=== PATIENT | male | born 1995 | race Caucasian/White ===

== ENCOUNTER 2020-06-15 06:05 | Emergency (ER) | payer MEDICAID, SELFPAY ==
--- NOTE | ~2020-06-15 | CT_ITS ---
EXAMINATION: CT ABDOMEN AND PELVIS WITHOUT CONTRAST CLINICAL INFORMATION: Left flank pain. COMPARISON: No priors. TECHNIQUE: Multidetector volumetric imaging was performed from the superior aspect of the liver through the pubic symphysis. Sagittal and coronal reformatted images were obtained on the technologist's workstation. This CT examination was performed using dose optimization techniques as appropriate, variously including the following: *Automated exposure control *Adjustment of mA and/or kV according to patient size (this includes techniques or standardized protocols for targeted exams where dose is matched to indication/reason for exam; i.e. extremities or head) *Use of iterative reconstruction technique DLP: 381 mGy-cm FINDINGS: LUNG BASES: The visualized lung bases are unremarkable. LIVER, GALLBLADDER, AND BILIARY TREE: The liver is normal in size, shape, and attenuation. No focal hepatic lesion or biliary ductal dilatation is present. The gallbladder is unremarkable with no evidence of radiopaque gallstones, gallbladder wall thickening, or obvious pericholecystic inflammatory changes. PANCREAS: Normal. SPLEEN: Normal. ADRENAL GLANDS: Normal. KIDNEYS AND URETERS: Punctate calculus in the inferior pole the left kidney (5:40) measures up to 2 mm. Punctate calculus in the inferior pole of the right kidney (5:45) measures up to 2 mm. No right or left ureteral calculi. No urinary bladder calculi. BLADDER: Normal. GASTROINTESTINAL TRACT: The small and large bowel are unremarkable. The appendix is unremarkable. PERITONEUM/RETROPERITONEUM AND MESENTERY: No free air or fluid. ABDOMINAL WALL: No significant hernia is appreciated. LYMPH NODES: Normal. VASCULAR: Unremarkable. PELVIC VISCERA: Prostate seminal vesicles are normal in caliber. OSSEOUS STRUCTURES: Normal. CT/CT abdomen pelvis wo con IMPRESSION: Bilateral nonobstructive punctate nephrolithiasis. No ureteral or urinary bladder calculi. No hydronephrosis or hydroureter.
[2020-06-15 06:19] VITALS: BP 122/69; PULSE 77; RESP 16; TEMP 36.8; O2SAT 98; BMI 22.8
[2020-06-15 07:07] VITALS: BP 102/56; PULSE 76; RESP 16; TEMP 36.5; O2SAT 96
--- NOTE | 2020-06-15 07:08 | ED_ITS ---
HPI - Back Pain/Injury General Chief Complaint: Back Pain/Injury Stated Complaint: Back pain Time Seen by Provider: 06/15/20 07:07 Source: patient Mode of arrival: ambulatory Limitations: no limitations History of Present Illness HPI Narrative: [age] year old male walked in for right flank pain, pain started 2 days ago, started as insidious onset, described the pain as dull aching pain localized to the right flank area with no radiation, pain is worsening with movement, nothing relieves the pain no other associated symptoms with this pain no nausea, no vomiting, no fever, no blood in the urine. Never had similar pain before. Patient was evaluated at [facility] yesterday patient was sent with muscle relaxant and NSAIDs with no relief. Patient declined any trauma for strenuous activity. Related Data Allergies Allergy/AdvReac Type Severity Reaction Status Date / Time No Known Allergies Allergy Unverified 12/14/19 16:20 Review of Systems Review of Systems: All other systems are reviewed and are negative Constitutional: Reports as per HPI and Reports no additional constitutional complaints Eyes: Reports as per HPI and Reports no additional eye complaints Reports system reviewed and no additional complaints, except as documented Cardiovascular: Reports as per HPI and Reports no additional cardiovascular complaints Respiratory: Reports as per HPI and Reports no additional respiratory complaints Gastrointestinal: Reports as per HPI and Reports no additional gastrointestinal complaints Genitourinary: Reports no additional female genitourinary complaints Musculoskeletal: Reports no additional musculoskeletal complaints Skin/Breast: Reports system reviewed and no additional complaints, except as docu Psychiatric: Reports no additional psychiatric complaints Endocrine: Reports no additional endocrine complaints Hematologic/Lymphatic: Reports no additional hematologic/lymphatic complaints Allergic/Immunologic: Reports no additional allergic/immunologic complaints Reports system reviewed and no additional complaints, except as documented and Reports Abnormal speech present [facility] Past Medical History Medical History No active medical problems Social History Social History Advance Directives: No Advance Directives Information Provided: No Physical Exam 2 Vital Signs: Vital Signs: Last Vital Signs Temp 97.7 F 06/15/20 07:07 Pulse 76 06/15/20 07:07 Resp 16 06/15/20 07:07 BP 102/56 L 06/15/20 07:07 Pulse Ox 96 06/15/20 07:07 Body Mass Index 22.8 Vital signs have been reviewed as appeared to be correct. Blood pressure normal. Heart rate normal. Respiration rate normal. Temperature normal. Oxygen saturation normal. Appearance: Alert. Oriented X3. No acute distress. Head: Normal external exam. Normocephalic. Atraumatic. No Mahan signs noted. No raccoon eyes noted Eyes: PERRLA. EOMI. Conjunctiva and sclera normal. Eyelids normal. ENT: TM's Normal. Pharynx normal. Uvula midline. Moist mucous membranes. No trismus noted. No drooling noted. No muffled voice noted. Neck: Normal inspection. Neck supple. FROM. No adenopathy. Thyroid Normal. No meningeal signs. No neck mass noted. CVS: Normal heart rate and rhythm. Heart sound normal. No murmurs noted. Pulses normal throughout. Respiratory: No respiratory distress. Painless inspiration. Breath sounds normal. No wheezes/rales/rhonchi noted. Chest nontender. No accessory muscle usage noted or decreased air movement noted. Abdomen: Soft and nontender. Bowel sounds normal in all 4 quadrants. No distention noted. No organomegaly noted. No visible injury noted. Back: Left CVA tenderness. Full range of motion noted. Skin: Skin warm and dry. Normal skin color. Normal skin turgor. No rashes/lesions/lacerations noted. Extremities: No lower extremity edema. Extremities exhibit normal range of motion. Extremities nontender. Neuro: Oriented X 3. No motor deficit. No sensory deficit. Reflexes normal. Course Course Course Narrative: 25-year-old male came in with left flank pain for the last 2 days, physical exam, labs, UA, and CT are consistent with muscular pain. Patient is already on muscle relaxant was advised to add ibuprofen if needed for pain and rest with avoiding strenuous activity. MDM - Back Pain/Injury Lab Data Attestation: I reviewed the patient's lab results. Result diagrams: 06/15/20 07:25 06/15/20 07:25 Labs: Lab Results 06/15/20 06/15/20 06/15/20 Range/Units 07:25 07:25 08:48 WBC 8.1 (4.8-10.8) X10*3/uL RBC 5.80 (4.60-5.80) X10*6/uL Hgb 16.7 (14.0-18.0) g/dl Hct 48.4 (42-52) % MCV 83.4 (80-98) fL MCH 28.8 (27.0-33.0) pg MCHC 34.5 (31.0-36.0) g/dl RDW 12.8 (11.0-16.0) % Plt Count 234 (160-400) X10*3/uL MPV 8.8 L (9.4-12.4) fL Immature Gran % (Auto) 0.2 (0.0-0.4) % Neut % (Auto) 56.3 (45-73) % Lymph % (Auto) 23.8 (20-40) % [place] % (Auto) 8.4 (2-11) % Eos % (Auto) 10.1 H (0-4) % Baso % (Auto) 1.2 (0-2) % Lymph # (Auto) 1.9 (1.2-4.9) X10*3/uL [place] # (Auto) 0.7 (0.1-1.2) X10*3/uL Eos # (Auto) 0.8 H (0.0-0.4) X10*3/uL Baso # (Auto) 0.1 (0.0-0.2) X10*3/uL Abs Immat Gran (auto) 0.02 (0.00-0.03) X10*3/uL Absolute Neuts (auto) 4.6 (2.0-8.3) X10*3/uL Absolute Nucleated RBC 0.000 (0.0-0.012) X10*3/uL Nucleated RBC % (auto) 0.0 (0.0-0.2) /100WBC Sodium 140 (135-145) mmol/L Potassium 4.8 (3.3-5.1) mmol/L Chloride 102 (96-108) mmol/L Carbon Dioxide 30 H (22-29) mmol/L Anion Gap 13 (12-20) BUN 14 (9-16) mg/dL Creatinine 1.04 (0.5-1.4) mg/dL Estim Creat Clear Calc 103.7 Estimated GFR > 60 Random Glucose 90 (60-115) mg/dL Calcium 9.3 (8.4-10.2) mg/dL Total Bilirubin 0.7 (0.0-1.0) mg/dL Direct Bilirubin 0.2 (0.0-0.5) mg/dL AST 19 (5-37) U/L ALT 13 (0-40) U/L Alkaline Phosphatase 73 (39-117) U/L Total Protein 7.5 (6.5-8.0) g/dL Albumin 4.5 (3.5-5.0) g/dL Lipase 29 (8-78) U/L Urine Color YELLOW Urine Appearance CLEAR Urine pH 6.0 (5.0-8.0) Ur Specific [place] 1.025 (1.005-1.025) Urine Protein NEG (NEG-TRACE) MG/DL Urine Glucose (UA) NEG (NEG) MG/DL Urine Ketones NEG (NEG) MG/DL Urine Blood NEG (NEG) Urine Nitrite NEG (NEG) Ur Leukocyte Esterase NEG (NEG) Imaging Data CT scan - abdomen: Radiologist's impression: Bilateral nonobstructive punctate nephrolithiasis. No ureteral or urinary bladder calculi. No hydronephrosis or hydroureter. Discharge Plan Discharge Clinical Impression: Muscle strain Patient Disposition: Home, Self-Care Instructions: Muscle Strain (ED) Referrals: Physician,None [Primary Care Provider] - 2 days
[2020-06-15 07:29] LABS: MANUAL DIFF FLAG NO
[2020-06-15] MEDS: Ketorolac Tromethamine 15 MG/ML VIAL IV (07:29)
[2020-06-15 07:31] LABS: Basophils Absolute Auto 0.1 X10*3/uL (0.0-0.2); Basophils Percent Auto 1.2 % (0-2); Eosinophils Absolute Auto 0.8 X10*3/uL (0.0-0.4); Eosinophils Percent Auto 10.1 % (0-4); Hematocrit 48.4 % (42-52); Hemoglobin 16.7 g/dl (14.0-18.0); Imm Gran Abs Auto 0.02 X10*3/uL (0.00-0.03); Imm Gran Pct Auto 0.2 % (0.0-0.4); Lymphocytes Absolute Auto 1.9 X10*3/uL (1.2-4.9); Lymphocytes Percent Auto 23.8 % (20-40); Mean Corpuscular HGB Conc 34.5 g/dl (31.0-36.0); Mean Corpuscular Hemoglobin 28.8 pg (27.0-33.0); Mean Corpuscular Volume 83.4 fL (80-98); Mean Platelet Volume 8.8 fL (9.4-12.4); Monocytes Absolute Auto 0.7 X10*3/uL (0.1-1.2); Monocytes Percent Auto 8.4 % (2-11); Neutrophils Absolute Auto 4.6 X10*3/uL (2.0-8.3); Neutrophils Percent Auto 56.3 % (45-73); Platelet Count 234 X10*3/uL (160-400); Red Cell Distribution Width 12.8 % (11.0-16.0); White Blood Count 8.1 X10*3/uL (4.8-10.8)
[2020-06-15 08:26] LABS: Alanine Aminotransferase 13 U/L (0-40); Albumin Level 4.5 g/dL (3.5-5.0); Alkaline Phosphatase 73 U/L (39-117); Anion Gap 13 (12-20); Aspartate Amino Transferase 19 U/L (5-37); Bilirubin Direct 0.2 mg/dL (0.0-0.5); Bilirubin Total 0.7 mg/dL (0.0-1.0); Blood Urea Nitrogen 14 mg/dL (9-16); Calcium 9.3 mg/dL (8.4-10.2); Carbon Dioxide 30 mmol/L (22-29); Chloride 102 mmol/L (96-108); Creatinine Clr Calc Pharmacy 103.7; Estimated Glomerular Filt Rate > 60; Glucose Random 90 mg/dL (60-115); Lipase 29 U/L (8-78); Potassium 4.8 mmol/L (3.3-5.1); Sodium 140 mmol/L (135-145); Total Protein 7.5 g/dL (6.5-8.0)
[2020-06-15 08:59] LABS: Glucose Urine UA NEG (NEG); Leukocyte Esterase Urine NEG (NEG); Nitrite Urine NEG (NEG); Specific Gravity - Urine 1.025 (1.005-1.025); Urine Blood NEG (NEG); Urine Ketones NEG (NEG); Urine Protein NEG (NEG-TRACE)
[2020-06-15 09:02] LABS: Appearance Urine CLEAR; Color Urine YELLOW
[2020-06-15 09:07] VITALS: BP 115/68; PULSE 54; RESP 16; TEMP 36.5; O2SAT 100
== END 2020-06-15 09:50 | disposition home or self-care (01) ==
PROVIDERS: Emergency Provider Emergency Medicine
DX: S39.012A Strain of muscle, fascia and tendon of lower back, initial encounter (principal); X58.XXXA Exposure to other specified factors, initial encounter; N20.0 Calculus of kidney; Y93.9 Activity, unspecified; Y92.9 Unspecified place or not applicable; Y99.9 Unspecified external cause status
CPT/HCPCS: 36415; 74176; 80048; 80076; 81003; 83690; 85025; 96374; 99284; J1885

== ENCOUNTER 2021-04-07 15:00 | Outpatient (RCR) | payer MEDICAID, SELFPAY | END 2021-04-29 14:22 | disposition home or self-care (01) | LOC: HO.PT 15:00 | PROVIDERS: PCP Family Medicine; Visit Provider Family Medicine | DX: M54.9 Dorsalgia, unspecified (principal) | CPT/HCPCS: 97110; 97161 ==

== ENCOUNTER 2021-05-29 18:49 | Emergency (ER) | payer MEDICAID, SELFPAY ==
[2021-05-29 19:19] VITALS: BP 113/71; PULSE 79; RESP 18; TEMP 36.5; O2SAT 98; BMI 23.6
--- NOTE | 2021-05-29 21:56 | ED_ITS ---
HPI - General Adult General Chief complaint: General Medical Stated complaint: big bump on right leg/ buttocks Time Seen by Provider: 05/29/21 20:27 Source: patient Mode of arrival: ambulatory Limitations: no limitations History of Present Illness HPI narrative: Patient presents to ED for painful lump on right buttock for the past 4 days. Patient denies any recent trauma to the area, pus discharge, fever, chills, or any shaving/injection into area. Patient states no medical history Related Data Previous Rx's Medication Instructions Recorded cephalexin 500 mg capsule 500 mg PO QID 7 Days #28 cap 05/29/21 doxycycline hyclate 100 mg capsule 100 mg PO BID 7 Days #14 cap 05/29/21 naproxen 500 mg tablet 500 mg PO BID PRN 10 Days #20 tab 05/29/21 oxycodone-acetaminophen 5 mg-325 1 tab PO TID PRN 3 Days #9 tab 05/29/21 mg tablet (Percocet) Allergies Allergy/AdvReac Type Severity Reaction Status Date / Time No Known Allergies Allergy Verified 05/29/21 19:18 Review of Systems Review of Systems: Right buttock pain. Lump Yes all other systems are reviewed and are negative PMFSH Past Medical History Medical History (Updated 05/30/21 @ 00:02 by Nancy Jacob) Seasonal allergies Social History Social History Advance Directives: No Advance Directives Information Provided: No Physical Exam ED Vital Signs: Vital Signs - 24 hr 05/29/21 19:19 Temperature 97.7 F Pulse Rate 79 Respiratory Rate 18 Blood Pressure 113/71 Pulse Oximetry 98 BMI result Body Mass Index 23.6 Const General: cooperative, healthy appearing, comfortable, no acute distress, well developed, alert, awake and Physically active Orientation/consciousness: patient oriented x3 HENMT Head: Yes normal to inspection, Yes No palpable skull fracture present, Yes normocephalic, Yes atraumatic and No abrasion Eyes General: appearance normal, both eyes and all related structures Neck Neck: Yes normal visual inspection, Yes full ROM, Yes no lymphadenopathy, Yes no meningeal signs, Yes trachea midline, Yes supple, No anterior neck swelling and No tender Chest Chest palpation & inspection: normal inspection of the chest and normal pa lpation of entire chest wall Resp Effort & Inspection: normal respiratory effort and able to speak in complete sentences Auscultation: clear to auscultation bilaterally Cardio Jugular venous distension: no JVD Heart sounds: S1 normal heart sound present and S2 normal heart sound present GI Inspection: Yes normal to inspection and No abdominal wall ecchymosis Palpation (GI): Soft to palpation, not firm, nontender, no guarding and not rigid General: No CVA tenderness and Yes no CVA tenderness Back/Spine/Pelvis Back: no CVA tenderness, No CVA tenderness and No back tenderness Skin Full body images: 1. Positive for erythema and tenderness on palpation. Hard and negative for any fluctuant. Negative for any pus discharge or foul odor. Neuro General: patient oriented x3, gait normal, no meningeal signs and CN's II-XI intact bilaterally Cranial nerves: Yes CN's II-XII intact bilaterally Extrem General: Yes normal to inspection and Yes full ROM Psych Appearance: grossly normal, well kempt and not disheveled Course Course Course Narrative: Early cellulitis/abscess. Reevaluation(s) Reevaluation #1: Bedside ultrasound of buttocks shows more cobblestone skin changes and not much pus collection. Not yet ready for drainage. Patient will be discharged with antibiotics. Patient educated on warm compress Time: 21:59 Medical Decision Making MDM Narrative Medical decision making narrative: Cellulitis/early abscess Discharge Plan Discharge Clinical Impression: Cellulitis and abscess of buttock Patient Disposition: Home, Self-Care Instructions: Cellulitis (ED), Abscess (ED) Additional Instructions: Presently there is no indication for incision and drainage. Recommend antibiotics and warm compresses 4 times a day for 15 minutes. There is increase in size, pain, opening with drainage, fever, chills, worsening redness, or any other concerning symptoms return to the ER immediately. Please follow-up with primary care provider Prescriptions: New cephalexin 500 mg capsule 500 mg PO QID 7 Days Qty: 28 0RF doxycycline hyclate 100 mg capsule 100 mg PO BID 7 Days Qty: 14 0RF naproxen 500 mg tablet 500 mg PO BID PRN (Reason: pain) 10 Days Qty: 20 0RF oxycodone-acetaminophen [Percocet] 5-325 mg tablet 1 tab PO TID PRN (Reason: pain) 3 Days Qty: 9 0RF Stand Alone Forms: Work/School Release Interventions: ED Discharge Assessment Last Done: 05/29/21 22:33 Discharge Date/Time: 05/29/21 22:34 Print Language: [place]
[2021-05-29] MEDS: oxyCODONE HCl Immed Release 5 MG TABLET PO (22:06)
== END 2021-05-29 22:34 | disposition home or self-care (01) ==
PROVIDERS: Emergency Provider Emergency Medicine Emergency Medical Services
DX: L03.317 Cellulitis of buttock (principal); L02.31 Cutaneous abscess of buttock
CPT/HCPCS: 99283; 99284

== ENCOUNTER 2022-05-24 10:26 | Emergency (ER) | payer MEDICAID, SELFPAY ==
--- NOTE | ~2022-05-24 | CT_ITS ---
EXAMINATION: CT ABDOMEN AND PELVIS WITHOUT CONTRAST CLINICAL INFORMATION: History of calculi. Left flank pain. COMPARISON: 06/15/2020 TECHNIQUE: Multidetector volumetric imaging was performed from the superior aspect of the liver through the pubic symphysis. Sagittal and coronal reformatted images were obtained on the technologist's workstation. This CT examination was performed using dose optimization techniques as appropriate, variously including the following: *Automated exposure control *Adjustment of mA and/or kV according to patient size (this includes techniques or standardized protocols for targeted exams where dose is matched to indication/reason for exam; i.e. extremities or head) *Use of iterative reconstruction technique DLP: 336 mGy-cm FINDINGS: LUNG BASES: Normal. No pulmonary consolidation or pleural effusion. LIVER: The liver has normal size, shape, and attenuation. No evidence of liver mass. GALLBLADDER AND BILIARY TREE: Gallbladder is without radiopaque stones, wall thickening or pericholecystic fluid. No dilated bile ducts. PANCREAS: Normal. No edema, pancreatic ductal dilatation or mass. SPLEEN: Normal. ADRENAL GLANDS: Normal. KIDNEYS AND URETERS: The kidneys have normal size and cortical thickness. No perinephric edema or fluid collection. A punctate calyceal stone is present in the anterior left lower pole (image 222, series 4). Otherwise, no evidence of urolithiasis or hydroureteronephrosis. BLADDER: Normal. No calculi or wall thickening. Two phleboliths are observed in the left lower pelvis. BOWEL AND PERITONEUM: Stomach is unremarkable. No dilated loops of bowel. No focal bowel wall thickening or mesenteric fat stranding. No evidence of an obstructive or inflammatory process along the gastrointestinal tract, although evaluation is partially limited for noncontrast examination. No free fluid or pneumoperitoneum. ABDOMINAL WALL: Unremarkable. VASCULATURE: Unremarkable. LYMPH NODES: No pathologic sized lymph nodes in the abdomen or pelvis. No inguinal lymphadenopathy. PELVIC VISCERA: Normal. MUSCULOSKELETAL: The visualized lower thoracic and lumbar vertebra have normal height and alignment. Mild lumbar spondylosis. No suspicious bone lesions. CT/CT abdomen pelvis wo IV con IMPRESSION: * No acute imaging abnormalities in the abdomen or pelvis. * A punctate stone is present in the lower pole of the left kidney. Otherwise, no evidence of nephrolithiasis, hydronephrosis or perinephric edema.
[2022-05-24 10:29] VITALS: BP 105/88; PULSE 66; RESP 16; TEMP 36.8; O2SAT 99; BMI 22.8
--- NOTE | 2022-05-24 10:51 | ED_ITS ---
HPI - Back Pain/Injury General Chief Complaint: Back Pain/Injury Stated Complaint: Back pain Time Seen by Provider: 05/24/22 10:34 Source: patient Mode of arrival: ambulatory Limitations: no limitations History of Present Illness HPI Narrative: Patient is a 27-year-old male presents emergency department for evaluation of left back pain. He states that he woke this morning with severe pain. Denies any precipitating injury or events last night that would have provoked these symptoms. He does state that he has had similar pain in the past, but he is unable to tell me whether there is ever any diagnosis or wet has been helpful status pain past. He took ibuprofen 2 hours ago without any improvement. Denies fevers, chills, burning with micturition, urinary frequency/urgency/hesitancy, bladder or bowel dysfunction, numbness or tingling of the perineum or bilateral legs. Denies any recent surgical procedures, any known immune compromising conditions, personal history of cancer, or IV drug usage. MD elicited complaint: back pain Related Data Previous Rx's Medication Instructions Recorded cephalexin 500 mg capsule 500 mg PO QID 7 days #28 caps 05/29/21 doxycycline hyclate 100 mg capsule 100 mg PO BID 7 days #14 caps 05/29/21 naproxen 500 mg tablet 500 mg PO BID PRN pain 10 days #20 05/29/21 tabs oxycodone-acetaminophen 5 mg-325 1 tab PO TID PRN pain 3 days #9 05/29/21 mg tablet (Percocet) tabs Allergies Allergy/AdvReac Type Severity Reaction Status Date / Time No Known Allergies Allergy Verified 05/29/21 19:18 Review of Systems Review of Systems: Constitutional: No weight loss, fever, chills, weakness or fatigue. HEENT: No visual loss, blurred vision, double vision. No hearing loss, sneezing, congestion, runny nose or sore throat. Skin: No rash or itching. Cardiovascular: No chest pain, chest pressure or chest discomfort. No palpitations or pedal edema. Respiratory: No shortness of breath, cough or sputum production. Gastrointestinal: No anorexia, nausea, vomiting or diarrhea. No abdominal pain or blood in stool. Genitourinary: No burning micturition. No urinary frequency or incontinence. Neurologic: No headache, dizziness, syncope, unilateral weakness, ataxia, numbness or tingling in the extremities. No change in bowel or bladder control. Musculoskeletal: + Back pain as noted in HPI. No joint pain or stiffness. Hematologic: No bleeding or bruising. Lymphatics: No enlarged lymph nodes. Psychiatric:No depression or anxiety. Endocrine: No reports of sweating. No cold or heat intolerance. No polyuria or polydipsia. Yes all other systems are reviewed and are negative PMFSH Past Medical History Attestation statement: The following information was validated with the patient. Source: old records reviewed Medical History Seasonal allergies Social History Social History Advance Directives: No Advance Directives Information Provided: Yes Physical Exam Vital Signs: Vital Signs: Last Vital Signs Temp 97.9 F 05/24/22 12:00 Pulse 61 05/24/22 12:00 Resp 18 05/24/22 12:00 BP 140/71 H 05/24/22 12:00 Pulse Ox 99 05/24/22 12:00 O2 Del Method 05/24/22 12:00 BMI result Body Mass Index 22.8 Appearance: Alert.?Oriented to person, place and time. No acute distress.?No rmal affect. Eyes: Pupils equal, round and reactive to light.? ENT: Pharynx normal.?? Neck: Normal inspection.? Neck supple.?? CVS: Heart sounds normal. Normal heart rate and rhythm.? Pulses normal; bilateral radial pulses 2+, bilateral posterior tibial/dorsalis pedis pulses 2+.? Respiratory: No respiratory distress.? Lung sounds clear to auscultation bilaterally?? Abdomen: Soft and non-tender. Normoactive bowel sounds. No pulsatile mass.?? Skin: Skin warm and dry.? Normal skin color.? Normal skin turgor.?? Extremities: No lower extremity edema.? No calf ttp? Back: Left CVA tenderness No midline spinal tenderness, step-off's, or deformity. Full ROM intact in bilateral lower extremities. Straight leg test negative on right; Straight leg test negative on left. No rashes, lesions, areas of induration or fluctuance, or signs of infection noted. Neuro: Moves all extremities spontaneously. 5/5 strength in hip extension/flexion, abduction, adduction. Sensation to light touch intact bilaterally. Patellar and Achilles reflex 2+ bilaterally. No ataxia, gait normal and steady.. No focal neuro deficits. Course Reevaluation(s) Reevaluation #1: CBC is unremarkable no leukocytosis no anemia. CMP within normal limits, no abnormal renal function. Urinalysis without evidence of infection or microscopic hematuria. CT of the abdomen and pelvis reveals no acute abnormality, a punctate stone is present in the lower pole the left kidney, although I do not suspect this to be the etiology for his pain. At this time pain is most consistent with muscular nature. Discussed plan of care for discharge home, prescription for Lidoderm patch, NSAID, muscle relaxers and patient's pharmacy. Advised outpatient follow-up with primary care provider for persistent symptoms. Reviewed worrisome signs and symptoms of warrant re- evaluation in the emergency department. All questions answered. Stable for discharge. Time: 12:27 Medications Administered Discontinued Medications Generic Name Dose Route Start Last Admin Trade Name Freq PRN Reason Stop Dose Admin Sodium Chloride 1,000 mls @ 999 mls/hr 05/24/22 11:15 05/24/22 11:24 Ns IV 05/24/22 12:15 999 mls/hr .Q1H1M BENITO Administration Lidocaine 1 patch 05/24/22 12:06 05/24/22 12:17 Lidocaine 4 % Patch Adh..Patch TRANSDERMA 05/24/22 12:07 1 patch ONCE ONE Administration Protocol Morphine Sulfate 4 mg 05/24/22 11:01 05/24/22 11:20 Morphine Sulfate 4 Mg/Ml Cartridge IVPUSH 05/24/22 11:02 4 mg ONCE ONE Administration Protocol Medical Decision Making Medical Decision Making MDM Narrative: Patient is a 27-year-old male with no reported past medical history presenting to the emergency department for evaluation of left flank pain, sudden onset this morning described as severe without any associated symptoms. He has significant left CVA tenderness palpation. At this time, symptoms most concerning for muscular pain verses nephrolithiasis/ureteral calculi/hydronephrosis. Review of past ED notes indicates patient has had similar pain in May 2020, CT at that time did reveal bilateral nonobstructive punctate nephrolithiasis, however no ureteral calculi, symptoms at that time were thought to be secondary to muscular strain. Will obtain CBC, CMP, urinalysis and CT abdomen has been ureteral calculi. Patient received 1 L normal saline, morphine 4 mg IV for pain. Dispo sition pending results. At this time, there are no focal neurological deficits, symptoms does not appear consistent spinal fracture, spinal infection, epidural abscess a, dissection. He has no high-risk past medical history that would warrant MRI or CT. On examination there is no current concern for cauda equina syndrome. Differential Diagnosis Differential Diagnoses: The differential diagnosis associated with the presentation includes (As noted above) Lab Data MDM Lab Attestation statement: I reviewed the patient's lab results. 05/24/22 11:13 05/24/22 11:13 Labs: Lab Results 05/24/22 05/24/22 05/24/22 Range/Units 11:13 11:13 11:52 WBC 6.6 (4.8-10.8) X10*3/uL RBC 5.61 (4.60-5.80) X10*6/uL Hgb 16.1 (14.0-18.0) g/dl Hct 45.9 (42.0-52.0) % MCV 81.8 (80.0-98.0) fL MCH 28.7 (27.0-33.0) pg MCHC 35.1 (31.0-36.0) g/dl RDW 12.6 (11.0-16.0) % Plt Count 218 (160-400) X10*3/uL MPV 8.9 L (9.4-12.4) fL Immature Gran % (Auto) 0.3 (0.0-0.4) % Neut % (Auto) 56.3 (45-73) % Lymph % (Auto) 21.3 (20-40) % [place] % (Auto) 6.5 (2-11) % Eos % (Auto) 13.9 H (0-4) % Baso % (Auto) 1.7 (0-2) % Lymph # (Auto) 1.4 (1.2-4.9) X10*3/uL [place] # (Auto) 0.4 (0.1-1.2) X10*3/uL Eos # (Auto) 0.9 H (0.0-0.4) X10*3/uL Baso # (Auto) 0.1 (0.0-0.2) X10*3/uL Abs Immat Gran (auto) 0.02 (0.00-0.03) X10*3/uL Absolute Neuts (auto) 3.7 (2.0-8.3) x10*3/uL Absolute Nucleated RBC 0.000 (0.0-0.012) X10*3/uL Nucleated RBC % (auto) 0.0 (0.0-0.2) /100WBC Sodium 140 (135-145) mmol/L Potassium 4.6 (3.3-5.1) mmol/L Chloride 104 (96-108) mmol/L Carbon Dioxide 28 (22-29) mmol/L Anion Gap 13 (12-20) BUN 14 (9-16) mg/dL Creatinine 0.96 (0.5-1.4) mg/dL Estim Creat Clear Calc 110.2 Estimated GFR > 60 Random Glucose 86 (60-115) mg/dL Calcium 9.3 (8.4-10.2) mg/dL Total Bilirubin 0.4 (0.0-1.0) mg/dL AST 18 (5-37) U/L ALT 13 (0-40) U/L Alkaline Phosphatase 79 (39-117) U/L Total Protein 6.9 (6.5-8.0) g/dL Albumin 4.2 (3.5-5.0) g/dL Urine Color Yellow Urine Appearance Clear Urine pH 5.5 (5.0-9.0) Ur Specific [place] 1.010 (1.005-1.025) Urine Protein Negative (Neg-Trace) mg/dL Urine Glucose (UA) Negative (Negative) mg/dL Urine Ketones Negative (Negative) mg/dL Urine Blood Negative (Negative) Urine Nitrite Negative (Negative) Ur Leukocyte Esterase Negative (Negative) Independent Interpretation I performed an independent interpretation of an: CT Scan Radiology Impression Discussion of test interpretation with radiology: I have reviewed the radiologist's reading. Radiologist Impression: CT/CT abdomen pelvis wo IV con IMPRESSION: *? No acute imaging abnormalities in the abdomen or pelvis. *? A punctate stone is present in the lower pole of the left kidney. Otherwise, no evidence of nephrolithiasis, hydronephrosis or perinephric edema. Discharge Plan Discharge Clinical Impression: Back strain Patient Disposition: Home, Self-Care Instructions: Back Pain (ED), Lower Back Exercises (ED) Additional Instructions: Your blood work, urine testing, and CT today are all normal. At this time your pain is most likely due to muscular nature. You may apply ice/heat to the area pain for 10-15 minutes 4-6 times daily. Engage in gentle stretching exercises. A prescription for Lidoderm patch was sent to your pharmacy, please be certain not to apply a heating pad over this patch. You can take ibuprofen 200 mg, 3 tablets (600mg) every 6-8 hours as needed for pain, in addition to Tylenol 500 mg, 2 tablets (1,000mg) every 4-6 hours as needed for pain, but not to exceed 3 doses daily (3,000mg).? I have also sent a prescription for a muscle relaxer to the pharmacy, this medication may make you drowsy, you should not drive, drink alcohol, or go to work/operate machinery while taking this medication. Please follow-up with your primary care provider for persistent symptoms. Prescriptions: No Action cephalexin 500 mg capsule 500 mg PO QID 7 Days Qty: 28 0RF doxycycline hyclate 100 mg capsule 100 mg PO BID 7 Days Qty: 14 0RF naproxen 500 mg tablet 500 mg PO BID PRN (Reason: pain) 10 Days Qty: 20 0RF oxycodone-acetaminophen [Percocet] 5-325 mg tablet 1 tab PO TID PRN (Reason: pain) 3 Days Qty: 9 0RF Referrals: [facility] [Primary Care Provider] -
[2022-05-24 11:16] LABS: MANUAL DIFF FLAG NO
[2022-05-24 11:20] VITALS: RESP 16
[2022-05-24 11:20] LABS: Basophils Absolute Auto 0.1 X10*3/uL (0.0-0.2); Basophils Percent Auto 1.7 % (0-2); Eosinophils Absolute Auto 0.9 X10*3/uL (0.0-0.4); Eosinophils Percent Auto 13.9 % (0-4); Hematocrit 45.9 % (42.0-52.0); Hemoglobin 16.1 g/dl (14.0-18.0); Imm Gran Abs Auto 0.02 X10*3/uL (0.00-0.03); Imm Gran Pct Auto 0.3 % (0.0-0.4); Lymphocytes Absolute Auto 1.4 X10*3/uL (1.2-4.9); Lymphocytes Percent Auto 21.3 % (20-40); Mean Corpuscular HGB Conc 35.1 g/dl (31.0-36.0); Mean Corpuscular Hemoglobin 28.7 pg (27.0-33.0); Mean Corpuscular Volume 81.8 fL (80.0-98.0); Mean Platelet Volume 8.9 fL (9.4-12.4); Monocytes Absolute Auto 0.4 X10*3/uL (0.1-1.2); Monocytes Percent Auto 6.5 % (2-11); Neutrophils Absolute Auto 3.7 x10*3/uL (2.0-8.3); Neutrophils Percent Auto 56.3 % (45-73); Platelet Count 218 X10*3/uL (160-400); Red Blood Count 5.61 X10*6/uL (4.60-5.80); Red Cell Distribution Width 12.6 % (11.0-16.0); White Blood Count 6.6 X10*3/uL (4.8-10.8)
[2022-05-24] MEDS: Morphine Sulfate 4 MG/ML CARTRIDGE IVPUSH (11:20)
[2022-05-24] MEDS: 0.9 % Sodium Chloride 1,000 ML 999 ML IV (11:24)
[2022-05-24 11:47] LABS: Alanine Aminotransferase 13 U/L (0-40); Albumin Level 4.2 g/dL (3.5-5.0); Alkaline Phosphatase 79 U/L (39-117); Anion Gap 13 (12-20); Aspartate Amino Transferase 18 U/L (5-37); Bilirubin Total 0.4 mg/dL (0.0-1.0); Blood Urea Nitrogen 14 mg/dL (9-16); Calcium 9.3 mg/dL (8.4-10.2); Carbon Dioxide 28 mmol/L (22-29); Chloride 104 mmol/L (96-108); Creatinine Clr Calc Pharmacy 110.2; Estimated Glomerular Filt Rate > 60; Glucose Random 86 mg/dL (60-115); Potassium 4.6 mmol/L (3.3-5.1); Sodium 140 mmol/L (135-145); Total Protein 6.9 g/dL (6.5-8.0)
[2022-05-24 11:58] LABS: Appearance Urine Clear; Color Urine Yellow; Glucose Urine UA Negative (Negative); Leukocyte Esterase Urine Negative (Negative); Nitrite Urine Negative (Negative); PH 5.5 (5.0-9.0); Urine Blood Negative (Negative); Urine Ketones Negative (Negative); Urine Protein Negative (Neg-Trace)
[2022-05-24 12:00] VITALS: BP 140/71; PULSE 61; RESP 18; TEMP 36.6; O2SAT 99
[2022-05-24] MEDS: Lidocaine 4 % Patch ADH..PATCH 1 PATCH TRANSDERMA (12:17)
== END 2022-05-24 12:48 | disposition home or self-care (01) ==
PROVIDERS: Nurse Practitioner Family; Emergency Provider Emergency Medicine
DX: M54.50 Low back pain, unspecified (principal); R10.30 Lower abdominal pain, unspecified; Z79.899 Other long term (current) drug therapy
CPT/HCPCS: 36415; 74176; 80053; 81003; 85025; 96361; 96374; 99284; J2270

== ENCOUNTER 2024-06-30 06:21 | Inpatient (IN) | payer MEDICAID, SELFPAY ==
[2024-06-30] VITALS (14 sets, daily range): BP systolic 120–140; BP diastolic 67–80; PULSE 70–115; RESP 18–30; TEMP 36.4–37.1; O2SAT 91–98; BMI 22.1; BMI 23.1
--- NOTE | ~2024-06-30 | XR_ITS ---
CLINICAL HISTORY: asthma 2 view chest x-ray Comparison: None Findings: There is bilateral consolidation, possible pneumonia or pulmonary edema Heart size is normal. No acute fracture. IMPRESSION: 1. Bilateral consolidation, differential considerations noted. This document has been electronically signed by: Hang Paige MD on 06/30/2024 07:02:09
[2024-06-30] MEDS: Albuterol Sulfate 2.5 MG, Albuterol/Iprat 2.5/0.5MG 3 ML 3 ML INHALE (06:46)
[2024-06-30 06:49] LABS: MANUAL DIFF FLAG NO
[2024-06-30 06:50] LABS: Basophils Absolute Auto 0.1 X10*3/uL (0.0-0.2); Basophils Percent Auto 0.5 % (0-2); Eosinophils Absolute Auto 0.1 X10*3/uL (0.0-0.4); Eosinophils Percent Auto 0.6 % (0-4); Hematocrit 35.1 % (42.0-52.0); Hemoglobin 12.7 g/dl (14.0-18.0); Imm Gran Abs Auto 0.09 X10*3/uL (0.00-0.03); Imm Gran Pct Auto 0.8 % (0.0-0.4); Lymphocytes Absolute Auto 1.5 X10*3/uL (1.2-4.9); Lymphocytes Percent Auto 13.3 % (20-40); Mean Corpuscular HGB Conc 36.2 g/dl (31.0-36.0); Mean Corpuscular Hemoglobin 28.7 pg (27.0-33.0); Mean Corpuscular Volume 79.2 fL (80.0-98.0); Mean Platelet Volume 8.2 fL (9.4-12.4); Monocytes Absolute Auto 1.4 X10*3/uL (0.1-1.2); Monocytes Percent Auto 12.4 % (2-11); Neutrophils Absolute Auto 8.1 x10*3/uL (2.0-8.3); Neutrophils Percent Auto 72.4 % (45-73); Platelet Count 448 X10*3/uL (160-400); Red Blood Count 4.43 X10*6/uL (4.60-5.80); Red Cell Distribution Width 12.3 % (11.0-16.0); White Blood Count 11.1 X10*3/uL (4.8-10.8)
--- NOTE | 2024-06-30 06:51 | ED_ITS ---
HPI - Asthma General Chief Complaint: Asthma Stated Complaint: SOB Time Seen by Provider: 06/30/24 06:51 History of Present Illness ED Provider: Colt JOHNSON Narrative: The patient is a 29-year-old male who has a history of asthma. He was apparently evaluated [facility] about a month ago and was found to have influenza. Ever since then he has had persistent cough. He says he has been feeling unwell for weeks perhaps he has been somewhat worse over the last few days. He has been using an albuterol inhaler a great deal as well as DayQuil and Chloraseptic. He says he has been coughing a great deal and has chest pain related to cough. He thinks he has had fevers. He finally came to the emergency room today because he was so tired of all these symptoms. Related Data Home Medications ?Medication ?Instructions ?Recorded ?Confirmed No Known Home Meds 06/30/24 06/30/24 Allergies Allergy/AdvReac Type Severity Reaction Status Date / Time No Known Allergies Allergy Verified 06/30/24 06:25 Review of Systems 2 Review of Systems: Yes all other systems are reviewed and are negative [facility] Past Medical History Medical History Seasonal allergies Social History Social History Smoked in Last 30 Days: No Use of substances other than those prescribed or required for medical reasons: No Advance Directives: No Advance Directives Information Provided: Yes Do you have a plan to hurt others: No Plan Physical Exam 2 Vital Signs: Vital Signs: Last Vital Signs Temp 97.7 F 06/30/24 08:22 Pulse 97 06/30/24 08:22 Resp 20 06/30/24 08:22 BP 140/77 H 06/30/24 08:22 Pulse Ox 91 L 06/30/24 09:23 O2 Del Method Room Air 06/30/24 08:22 O2 Flow Rate 2 06/30/24 06:36 BMI result Body Mass Index 22.1 Const: Other: The patient is a slim 29-year-old male who was awake and alert. He looks quite fatigued but not in overt distress. HEENT: Other: Face is symmetrical, mucous membranes moist. Eyes: General: appearance normal, both eyes and all related structures Neck: Neck: Yes normal visual inspection, Yes full ROM, Yes no lymphadenopathy and Yes no JVD Resp: Other: Inspiratory crackles and bilateral expiratory wheezes Cardio: Rate: regular rate Rhythm: regular rhythm Heart sounds: S1 normal heart sound present and S2 normal heart sound present GI: Other: soft and nontender Skin: Other: dry and unremarkable Neuro: Other: the patient was awake and alert. He seemed quite fatigued. Cranial nerves are grossly intact. He moves his extremities symmetrically and appropriately. No obvious focal neurological deficit. Extrem: Other: No peripheral edema, calf swelling, or tenderness, no asymmetry. Medications Administered Discontinued Medications Generic Name Dose Route Start Last Admin Trade Name Freq PRN Reason Stop Dose Admin Albuterol Sulfate 2.5 mg/ 5 mg 06/30/24 07:40 06/30/24 07:43 Albuterol Sulfate 2.5 mg INHALE 06/30/24 07:41 5 mg ONCE ONE Administration Ceftriaxone Sodium 1 gm 06/30/24 07:12 06/30/24 07:40 Ceftriaxone Sodium 1 Gm Vial IVPUSH 06/30/24 07:13 1 gm ONCE ONE Administration Albuterol Sulfate 2.5 mg/ 0 mg 06/30/24 06:44 06/30/24 06:46 Albuterol/Ipratropium 3 ml INHALE 06/30/24 06:45 5 dose ONCE ONE Administration Magnesium Sulfate 2 gm in 50 mls @ 25 mls/hr 06/30/24 06:41 06/30/24 09:08 Magnesium Sulfate/H2o IV 06/30/24 08:40 Infused ONCE ONE Infusion Sodium Chloride 1,000 mls @ 999 mls/hr 06/30/24 07:15 06/30/24 08:22 Ns IV 06/30/24 08:15 Infused .Q1H1M BENITO Infusion Doxycycline Hyclate 100 mg/ 250 mls @ 166.67 mls/hr 06/30/24 07:12 06/30/24 09:10 Sodium Chloride IV 06/30/24 08:41 Infused ONCE ONE Infusion Sodium Chloride 1,000 mls @ 999 mls/hr 06/30/24 08:45 06/30/24 09:14 Ns IV 06/30/24 09:45 999 mls/hr .Q1H1M BENITO Administration Methylprednisolone Sodium Succinate 125 mg 06/30/24 06:41 06/30/24 07:06 Methylprednisolone Sod Succ 125 Mg/2 Ml Vial IVPUSH 06/30/24 06:42 125 mg ONCE ONE Administration Oseltamivir Phosphate 75 mg 06/30/24 07:59 06/30/24 08:20 Oseltamivir Phosphate 75 Mg Capsule PO 06/30/24 08:00 75 mg ONCE ONE Administration Medical Decision Making Medical Decision Making [facility] Narrative: The patient is a 29-year-old male with a history of asthma who describes several weeks of shortness of breath. Reportedly he had the flu several weeks ago. Arrives with a an oxygen saturation of 91% on room air and a heart rate of 115. He looks worn out but not in acute so a lot of diffuse increased interstitial markings generally. the patient was given bronchodilator updraft treatments, IV steroids, and IV magnesium initially for what seems to be an asthma exacerbation. Additionally signs of bilateral pneumonia. I suspect that the pattern is probably more of a viral pattern than a bacterial pattern. Nevertheless blood cultures and a lactate were sent. The patient was started on IV antibiotics, ceftriaxone and doxycycline. The patient has viral swab has come back positive for influenza B. The patient was also started on oseltamivir. given the patient's tachypnea and tachycardia and the appearance of his x-ray, and also given that he was diagnosed with influenza a 2 weeks ago at [facility] Emergency room and I think this patient probably has not been well for several weeks, I think hospitalization is reasonable. The patient was admitted to the hospitalist service. Lab Data 06/30/24 06:46 06/30/24 06:46 Labs: Lab Results 06/30/24 06/30/24 06/30/24 Range/Units 06:33 06:46 07:22 WBC 11.1 H (4.8-10.8) X10*3/uL RBC 4.43 L D (4.60-5.80) X10*6/uL Hgb 12.7 L D (14.0-18.0) g/dl Hct 35.1 L D (42.0-52.0) % MCV 79.2 L (80.0-98.0) fL MCH 28.7 (27.0-33.0) pg MCHC 36.2 H (31.0-36.0) g/dl RDW 12.3 (11.0-16.0) % Plt Count 448 H D (160-400) X10*3/uL MPV 8.2 L (9.4-12.4) fL Immature Gran % (Auto) 0.8 H (0.0-0.4) % Neut % (Auto) 72.4 (45-73) % Lymph % (Auto) 13.3 L (20-40) % Alexander % (Auto) 12.4 H (2-11) % Eos % (Auto) 0.6 (0-4) % Baso % (Auto) 0.5 (0-2) % Lymph # (Auto) 1.5 (1.2-4.9) X10*3/uL Alexander # (Auto) 1.4 H (0.1-1.2) X10*3/uL Eos # (Auto) 0.1 (0.0-0.4) X10*3/uL Baso # (Auto) 0.1 (0.0-0.2) X10*3/uL Abs Immat Gran (auto) 0.09 H (0.00-0.03) X10*3/uL Absolute Neuts (auto) 8.1 (2.0-8.3) x10*3/uL Absolute Nucleated RBC 0.000 (0.0-0.012) X10*3/uL Nucleated RBC % (auto) 0.0 (0.0-0.2) /100WBC Sodium 139 (135-145) mmol/L Potassium 3.1 L (3.3-5.1) mmol/L Chloride 103 (96-108) mmol/L Carbon Dioxide 23 (22-29) mmol/L Anion Gap 16 (12-20) BUN 8 L (9-16) mg/dL Creatinine 0.70 (0.5-1.4) mg/dL Estim Creat Clear Calc 139.4 Estimated GFR > 60 Random Glucose 104 (60-115) mg/dL Lactic Acid 1.6 (0.5-2.0) mmol/L Calcium 9.5 (8.4-10.2) mg/dL Total Bilirubin 0.8 (0.0-1.0) mg/dL AST 38 H (5-37) U/L ALT 34 (0-40) U/L Alkaline Phosphatase 91 (39-117) U/L C-Reactive Protein 19.29 H (< or = 0.50) mg/dL Total Protein 7.7 (6.5-8.0) g/dL Albumin 3.3 L (3.5-5.0) g/dL Respiratory Panel Jasso Adenovirus (Rapid PCR) (Not Detect.) B.pert (TEM-PCR) (Not Detect.) B.parapertussis DNA PCR (Not Detect.) C. pneumoniae DNA (PCR) (Not Detect.) Coronavirus OC43 (PCR) (Not Detect.) Coronavirus HKU1 (PCR) (Not Detect.) Coronavirus 229E (PCR) (Not Detect.) Coronavirus NL63 (PCR) (Not Detect.) Human Metapneumovir PCR (Not Detect.) Influenza A (RT-PCR) (Not Detect.) Influenza A (H1) PCR (Not Detect.) Influ A (H1/09) PCR (Not Detect.) Influenza A (H3) PCR (Not Detect.) Influenza Type A (PCR) NEGATIVE (Negative) Influenza B (RT-PCR) (Not Detect.) Influenza Type B (PCR) POSITIVE A (Negative) M. pneumoniae (PCR) (Not Detect.) Parainfluenza 1 (PCR) (Not Detect.) Parainfluenza 2 (PCR) (Not Detect.) Parainfluenza 3 (PCR) (Not Detect.) Parainfluenza 4 (PCR) (Not Detect.) RSV (PCR) (Not Detect.) RSV RNA Qual (PCR) NEGATIVE (Negative) Entero/Rhino (PCR) (Not Detect.) SARS-CoV-2 RNA (RT-PCR) NEGATIVE (Negative) 06/30/24 Range/Units 08:04 WBC (4.8-10.8) X10*3/uL RBC (4.60-5.80) X10*6/uL Hgb (14.0-18.0) g/dl Hct (42.0-52.0) % MCV (80.0-98.0) fL MCH (27.0-33.0) pg MCHC (31.0-36.0) g/dl RDW (11.0-16.0) % Plt Count (160-400) X10*3/uL MPV (9.4-12.4) fL Immature Gran % (Auto) (0.0-0.4) % Neut % (Auto) (45-73) % Lymph % (Auto) (20-40) % Alexander % (Auto) (2-11) % Eos % (Auto) (0-4) % Baso % (Auto) (0-2) % Lymph # (Auto) (1.2-4.9) X10*3/uL Alexander # (Auto) (0.1-1.2) X10*3/uL Eos # (Auto) (0.0-0.4) X10*3/uL Baso # (Auto) (0.0-0.2) X10*3/uL Abs Immat Gran (auto) (0.00-0.03) X10*3/uL Absolute Neuts (auto) (2.0-8.3) x10*3/uL Absolute Nucleated RBC (0.0-0.012) X10*3/uL Nucleated RBC % (auto) (0.0-0.2) /100WBC Sodium (135-145) mmol/L Potassium (3.3-5.1) mmol/L Chloride (96-108) mmol/L Carbon Dioxide (22-29) mmol/L Anion Gap (12-20) BUN (9-16) mg/dL Creatinine (0.5-1.4) mg/dL Estim Creat Clear Calc Estimated GFR Random Glucose (60-115) mg/dL Lactic Acid (0.5-2.0) mmol/L Calcium (8.4-10.2) mg/dL Total Bilirubin (0.0-1.0) mg/dL AST (5-37) U/L ALT (0-40) U/L Alkaline Phosphatase (39-117) U/L C-Reactive Protein (< or = 0.50) mg/dL Total Protein (6.5-8.0) g/dL Albumin (3.5-5.0) g/dL Respiratory Panel Jasso See Note Adenovirus (Rapid PCR) Not Detected (Not Detect.) B.pert (TEM-PCR) Not Detected (Not Detect.) B.parapertussis DNA PCR Not Detected (Not Detect.) C. pneumoniae DNA (PCR) Not Detected (Not Detect.) Coronavirus OC43 (PCR) Not Detected (Not Detect.) Coronavirus HKU1 (PCR) Not Detected (Not Detect.) Coronavirus 229E (PCR) Not Detected (Not Detect.) Coronavirus NL63 (PCR) Not Detected (Not Detect.) Human Metapneumovir PCR Not Detected (Not Detect.) Influenza A (RT-PCR) Not Detected (Not Detect.) Influenza A (H1) PCR Not Detected (Not Detect.) Influ A (H1/09) PCR Not Detected (Not Detect.) Influenza A (H3) PCR Not Detected (Not Detect.) Influenza Type A (PCR) (Negative) Influenza B (RT-PCR) Not Detected (Not Detect.) Influenza Type B (PCR) (Negative) M. pneumoniae (PCR) Not Detected (Not Detect.) Parainfluenza 1 (PCR) Not Detected (Not Detect.) Parainfluenza 2 (PCR) Not Detected (Not Detect.) Parainfluenza 3 (PCR) Not Detected (Not Detect.) Parainfluenza 4 (PCR) Not Detected (Not Detect.) RSV (PCR) Not Detected (Not Detect.) RSV RNA Qual (PCR) (Negative) Entero/Rhino (PCR) Not Detected (Not Detect.) SARS-CoV-2 RNA (RT-PCR) Not Detected (Negative) Critical Care Time Critical Care Time Critical Care Time: Yes Total Critical Care Time: 35 Attestation: The patient was critically ill with a high probability of imminent or life- threatening deterioration. I spent greater than 30 minutes of discontinuous time evaluating the patient, delivering critical care at the bedside, discussing evaluating data with consultants. Critical care time does not include time spent performing separately billable procedures or teaching. Time spent performing critical care with 35 minutes. Discharge Plan Discharge Clinical Impression: Pneumonia, Influenza B Patient Disposition: Admitted As Inpatient Print Language: Salvadorean
[2024-06-30 07:05] LABS: Alanine Aminotransferase 34 U/L (0-40); Albumin Level 3.3 g/dL (3.5-5.0); Alkaline Phosphatase 91 U/L (39-117); Anion Gap 16 (12-20); Aspartate Amino Transferase 38 U/L (5-37); Bilirubin Total 0.8 mg/dL (0.0-1.0); Blood Urea Nitrogen 8 mg/dL (9-16); Calcium 9.5 mg/dL (8.4-10.2); Carbon Dioxide 23 mmol/L (22-29); Chloride 103 mmol/L (96-108); Creatinine Clr Calc Pharmacy 139.4; Estimated Glomerular Filt Rate > 60; Glucose Random 104 mg/dL (60-115); Potassium 3.1 mmol/L (3.3-5.1); Sodium 139 mmol/L (135-145); Total Protein 7.7 g/dL (6.5-8.0)
[2024-06-30] MEDS: methylPREDNISolone Sod Succ 125 MG/2 ML VIAL IVPUSH (07:06)
[2024-06-30] MEDS: Magnesium Sulfate/H2O 2 GM/50 ML PIGGYBACK IV (07:06)
--- NOTE | 2024-06-30 07:10 | PC.NURSE ---
medication administered per provider order. effectiveness pending. slight sob/wob still displayed. pt sitting upright to promote patent airway. on 2L via NC. respirations even/labored. otherwise vss and up to date. breathing tx completed. xray results pending. plan of care ongoing. call aparicio placed within reach.
[2024-06-30 07:14] LABS: Influenza A PCR NEGATIVE (Negative); Influenza B PCR POSITIVE (Negative); Resp Syncy Virus RNA Qual PCR NEGATIVE (Negative); SARS COV2 PCR INHOUSE NEGATIVE (Negative)
[2024-06-30] MEDS: 0.9 % Sodium Chloride 1,000 ML 999 ML IV ×2 (07:14→09:14)
--- OUTSIDE RECORDS SUMMARY | 2024-06-30 07:17 | XMS_ITS | Clinical Summary ---
Author Organization [facility] ity Address [address] [place] [address] Care Team Providers Care Bathhouse Keeper Name Role Phone Unavailable Primary Care Provider Unavailabl e Social History Tobacco Use Types Packs/Day Years Used Date Smoking Tobacco: Never Assessed Sex and Gender Information Value Date Recorded Sex Assigned at Not on file Legal Sex Male 6:15 PM EST Gender Identity Not on file Sexual Orientation Not on file Plan of Treatment Health Maintenance Due Date Last Done Comments DTaP,Tdap,and Td Vaccines (1 - Tdap) 2013 Hepatitis B Vaccines (1 of 3 - 19+ 3-dose series) 2013 COVID-19 Vaccine (2023-2 5 season) 2023 Influenza Vaccine (#1) 2023 HIB Vaccines Aged Out No longer eligi ble based on patient's age to complete this topic HPV Vaccines Aged Out No longer eligi ble based on patient's age to complete this topic Hepatitis A Vaccines Aged Out No long er eligible based on patient's age to complete this topic IPV Vaccines Aged Out No longer eligi ble based on patient's age to complete this topic MMR Vaccines Aged Out No longer eligi ble based on patient's age to complete this topic Meningococcal ACWY Vaccine Aged Out N o longer eligible based on patient's age to complete this topic Meningococcal B Vacine Aged Out No lo nger eligible based on patient's age to complete this topic Pneumococcal Vaccine: Pediat rics (0 to 5 Years) and At-Risk Patients (6 to 64 Years) Aged Out No longer eligible b ased on patient's age to complete this topic RSV Immunization Patients Un smith 20 months Aged Out No longer eligible b ased on patient's age to complete this topic Varicella Vaccines Aged Out No longer eligible based on patient's age to complete this topic
[2024-06-30] MEDS: Doxycycline Hyclate 100 MG in 0.9 % Sodium Chloride 250 ML 166.67 MG IV ×2 (07:40→20:04)
[2024-06-30] MEDS: cefTRIAXone sodium 1 GM VIAL IVPUSH (07:40)
[2024-06-30] MEDS: Albuterol Sulfate 2.5 MG, Albuterol Sulfate (0.083%) 2.5 MG 5 MG INHALE (07:43)
[2024-06-30 07:47] LABS: Lactic Acid 1.6 mmol/L (0.5-2.0)
--- NOTE | 2024-06-30 07:50 | PC.NURSE ---
2nd 18gIV placed in the right forearm - cultures obtained/sent to lab. 2nd set of cultures obtained by tech. abx administered/infusing per provider order. pt receiving 2nd breathing tx via RT. pt otherwise remains on 2L via NC at this time. respirations improving. less sob/wob noted. pt remains in upright position to promote patent airway. plan of care ongoing. call aparicio placed within reach.
[2024-06-30 08:06] LABS: C Reactive Protein 19.29 mg/dL (< or = 0.50)
[2024-06-30] MEDS: Oseltamivir Phosphate 75 MG CAPSULE PO ×2 (08:20→21:38)
--- NOTE | 2024-06-30 08:24 | PC.NURSE ---
vss and up to date. pt taken off of O2 - pt currently on RA w/o difficulty. SPO2 @ 95%. 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 precautions in place. medication administered per provider order.
--- NOTE | 2024-06-30 09:21 | PC.NURSE ---
ambulatory O2 performed. SPO2 between 91%-92%. HR at 120bpm. pt verbalizing sx have improved but still feeling somewhat sob. provider notified/aware of results. 2nd bag of IVF infusing at this time. pt speaking w/ hospitalist. plan of care ongoing.
--- NOTE | 2024-06-30 09:26 | PHA.MEDREC ---
Addendum entered by Tin Hawkins RPh 06/30/24 09:28: Med rec was reviewed by Carola. Original Note: Pharmacy Consult ? Medication Reconciliation Pharmacy has completed the medication reconciliation. Patient states he is not on any medications.
--- NOTE | 2024-06-30 09:42 | P.HPHOSP_ITS ---
History of Present Illness Date of Service: 06/30/24 Attending physician on admission: Deana Maldonado Chief Complaint: SOB Pt is a 29-year-old male with a PMH significant for?asthma who presents to the ED with?increased SOB and MALAGON x3 weeks, worsening the past few days. Pt was recently seen [place] [facility] [place] where he tested positive for influenza type A and was discharged home on a steroid taper and refill of albuterol rescue inhaler. Pt reports since then symptoms have not improved. Pt has continued to have constant cough productive of yellowish sputum, as well as SOB and difficulty breathing. Chills but no measured fever. Chest tightness associated with breathing and cough. Cough has worsened over the past few days. Denies any significant fatigue. No nausea, vomiting, abdominal pain. In the ED pt was tachycardic up to 115 and tachypneic up to 25, desatting to 91% on RA. Labs were significant for testing positive for influenza type B, mild leukocytosis of 11.1, slightly reduced H&H of 12.7/35.1, potassium 3.1, and CRP 19.29. Lactic acid WNL at 1.6. Renal function baseline. Hepatic function largely WNL. Full respiratory panel pending. CXR showed bilateral consolidations concerning for pneumonia vs pulmonary edema. Pt was treated with DuoNebs, Solu-Medrol, Mag sulfate, 2L IVF, Tamiflu, doxycycline, and ceftriaxone. Pt will be admitted to the hospital for treatment and further evaluation of acute asthma exacerbation in the setting of influenza type B infection with post flu pneumonia with sepsis. Review of Systems 2 Review of Systems: Negative except for that which is stated in the [facility] Medical History (Updated 06/30/24 @ 10:22 by DIANNA Jarvis) Unspecified asthma Seasonal allergies Social History Patient Tobacco Use Status: Never used Tobacco Meds Allergies Allergy/AdvReac Type Severity Reaction Status Date / Time No Known Allergies Allergy Verified 06/30/24 06:25 Active Medications: Current Medications Sodium Chloride (Ns) 1,000 mls @ 999 mls/hr IV .Q1H1M BENITO Stop: 06/30/24 09:45 Last Admin: 06/30/24 09:14 Dose: 999 mls/hr Home Medications ?Medication ?Instructions ?Recorded ?Confirmed ?Last Taken ?Type No Known Home Meds 06/30/24 06/30/24 Unknown History Physical Exam 2 Vital Signs and Narrative: Vital Signs: Last Vital Signs Temp 97.7 F 06/30/24 08:22 Pulse 97 06/30/24 08:22 Resp 20 06/30/24 08:22 BP 140/77 H 06/30/24 08:22 Pulse Ox 91 L 06/30/24 09:23 O2 Del Method Room Air 06/30/24 08:22 O2 Flow Rate 2 06/30/24 06:36 BMI result Body Mass Index 22.1 General: AOx3, no acute distress Resp: Diffuse wheezing and rhonchi in lower lobes bilaterally CVS: S1, S2, regularl rate, tachycardic GI: +BS, NT, no distention Skin: Warm, dry Neuro: Cranial nerves II-XII grossly intact bilaterally. Motor grossly intact bilaterally Extremities: No edema Psych: Appropriate affect Results Labs 06/30/24 06:46 06/30/24 06:46 Labs: Laboratory Results - last 24 hr 06/30/24 06/30/24 06/30/24 06:33 06:46 07:22 MCV 79.2 L MCH 28.7 MCHC 36.2 H RDW 12.3 Plt Count 448 H D MPV 8.2 L Immature Gran % (Auto) 0.8 H Neut % (Auto) 72.4 Lymph % (Auto) 13.3 L [place] % (Auto) 12.4 H Eos % (Auto) 0.6 Baso % (Auto) 0.5 Lymph # (Auto) 1.5 [place] # (Auto) 1.4 H Eos # (Auto) 0.1 Baso # (Auto) 0.1 Abs Immat Gran (auto) 0.09 H Absolute Neuts (auto) 8.1 Absolute Nucleated RBC 0.000 Nucleated RBC % (auto) 0.0 Anion Gap 16 Estim Creat Clear Calc 139.4 Estimated GFR > 60 Random Glucose 104 Lactic Acid 1.6 Calcium 9.5 Total Bilirubin 0.8 AST 38 H ALT 34 Alkaline Phosphatase 91 C-Reactive Protein 19.29 H Total Protein 7.7 Albumin 3.3 L Influenza Type A (PCR) NEGATIVE Influenza Type B (PCR) POSITIVE A RSV RNA Qual (PCR) NEGATIVE SARS-CoV-2 RNA (RT-PCR) NEGATIVE Assessment and Plan (1) Influenza B: Status: Acute (2) Pneumonia: Status: Acute Plan Pt is a 29-year-old male with a PMH significant for?asthma who presents to the ED with?increased SOB and MALAGON x3 weeks, worsening the past few days. Pt will be admitted to the hospital for treatment and further evaluation of acute asthma exacerbation in the setting of influenza type B infection with post flu pneumonia with sepsis. Acute asthma exacerbation in the setting of influenza type B infection with post flu pneumonia with sepsis Tested positive for flu A on [place] [facility] positive for flu B today CXR showing bilateral pneumonia Meets sepsis criteria with tachycardia and tachypnea; lactic acid WNL Pt IVF and started on broad-spectrum antibiotics in the ED Will treat with ceftriaxone and azithromycin, started 06/30/2024 Will also give DuoNebs, Solu-Medrol, guaifenesin, loratadine, and Tamiflu Monitor respiratory status Hypokalemia Potassium 3.1 at time of presentation Likely secondary to reduced p.o. intake in the setting of above Will supplement with potassium chloride 40 mEq x2 Follow potassium Unspecified asthma Pt reports only has a rescue inhaler which he uses every day Does not currently follow with PCP Should establish with PCP and/or pulmonology for asthma management and being started on maintenance inhaler Full Code Attending:?Dr. Maldonado DVT Prophylaxis: Lovenox Pt will require a hospitalization of at least two nights for treatment of?acute asthma exacerbation in the setting of influenza type B infection with post flu pneumonia with sepsis. Pt will require hospital level care for treatment with IV antibiotics, IV steroids, bronchodilators, and close monitoring respiratory status. Quality Stroke Does the patient have a stroke diagnosis?: No VTE Prior VTE?: No VTE Risk Level:: Medical - moderate - high VTE Device Contraindication: Treatment Not Indicated VTE Drug Contraindication: N/A - Med Ordered
[2024-06-30 09:46] LABS: Adenovirus PCR Not Detected (Not Detect.); Bordetella parapertussis PCR Not Detected (Not Detect.); Bordetella pertussis PCR Not Detected (Not Detect.); Chlamydia pneumoniae PCR Not Detected (Not Detect.); Coronavirus 229E PCR Not Detected (Not Detect.); Coronavirus HKU1 PCR Not Detected (Not Detect.); Coronavirus NL63 PCR Not Detected (Not Detect.); Coronavirus OC43 PCR Not Detected (Not Detect.); Human metapneumovirus PCR Not Detected (Not Detect.); Influenza A PCR Not Detected (Not Detect.); Influenza B PCR Not Detected (Not Detect.); Mycoplasma pneumoniae PCR Not Detected (Not Detect.); Parainfluenza 1 PCR Not Detected (Not Detect.); Parainfluenza 2 PCR Not Detected (Not Detect.); Parainfluenza 3 PCR Not Detected (Not Detect.); Parainfluenza 4 PCR Not Detected (Not Detect.); RSV PCR Not Detected (Not Detect.); Rhino/Enterovirus PCR Not Detected (Not Detect.)
[2024-06-30 09:48] LABS: Influenza A H1 PCR Not Detected (Not Detect.); Influenza A H1-2009 PCR Not Detected (Not Detect.); Influenza A H3 PCR Not Detected (Not Detect.); SARS-CoV-2 PCR Not Detected (Not Detect.)
[2024-06-30] MEDS: Potassium Chloride Packet 20 MEQ PACKET 40 MEQ PO ×2 (10:25→21:38)
[2024-06-30] MEDS: Enoxaparin Sodium 40 MG/0.4 ML SYRINGE SUBCUT (10:25)
[2024-06-30] MEDS: Loratadine 10 MG TABLET PO (10:53)
[2024-06-30] MEDS: Albuterol/Iprat 2.5/0.5MG 3 ML AMPUL.NEB INHALE ×3 (11:35→19:26)
--- NOTE | 2024-06-30 12:04 | PC.NURSE ---
pt requesting to leave AMA. pt educated on importance of admission to receive IV abx but still requesting to leave. admitting provider notified/aware.
--- NOTE | 2024-06-30 15:02 | PC.NURSE ---
report given to JHONNY Kline in overflow at this time.
[2024-06-30] MEDS: 0.9 % Sodium Chloride Flush 3 ML SYRINGE IVFLUSH ×2 (17:25→21:42)
[2024-06-30] MEDS: methylPREDNISolone Sod Succ 40 MG/ML VIAL IVPUSH (21:38)
[2024-07-01 03:08] VITALS: BP 131/84; PULSE 83; RESP 18; TEMP 36.9; O2SAT 98
[2024-07-01 07:26] VITALS: BP 121/78; PULSE 84; RESP 16; TEMP 36.8; O2SAT 96
[2024-07-01 07:55] LABS: Hematocrit 35.9 % (42.0-52.0); Hemoglobin 12.2 g/dl (14.0-18.0); Mean Corpuscular Volume 82.3 fL (80.0-98.0); Platelet Count 491 X10*3/uL (160-400); Red Blood Count 4.36 X10*6/uL (4.60-5.80); Red Cell Distribution Width 12.7 % (11.0-16.0); White Blood Count 13.1 X10*3/uL (4.8-10.8)
[2024-07-01 07:56] VITALS: PULSE 86; RESP 16; O2SAT 97
[2024-07-01] MEDS: Albuterol/Iprat 2.5/0.5MG 3 ML AMPUL.NEB INHALE (07:56)
[2024-07-01 08:15] LABS: Blood Urea Nitrogen 10 mg/dL (9-16); Calcium 9.4 mg/dL (8.4-10.2); Creatinine Clr Calc Pharmacy 150.7; Estimated Glomerular Filt Rate > 60; Glucose Random 108 mg/dL (60-115)
[2024-07-01] MEDS: Enoxaparin Sodium 40 MG/0.4 ML SYRINGE SUBCUT (08:20)
[2024-07-01] MEDS: cefTRIAXone sodium 1 GM VIAL IVPUSH (08:20)
[2024-07-01] MEDS: 0.9 % Sodium Chloride Flush 3 ML SYRINGE IVFLUSH (08:20)
[2024-07-01] MEDS: Doxycycline Hyclate 100 MG in 0.9 % Sodium Chloride 250 ML 166.67 MG IV (08:21)
[2024-07-01] MEDS: methylPREDNISolone Sod Succ 40 MG/ML VIAL IVPUSH (08:21)
[2024-07-01] MEDS: Oseltamivir Phosphate 75 MG CAPSULE PO (08:21)
[2024-07-01] MEDS: Loratadine 10 MG TABLET PO (08:21)
[2024-07-01 08:26] LABS: Anion Gap 11 (12-20); Carbon Dioxide 24 mmol/L (22-29); Chloride 109 mmol/L (96-108); Potassium 4.8 mmol/L (3.3-5.1); Sodium 139 mmol/L (135-145)
[2024-07-01 08:57] LABS: Erythrocyte Sedimentation Rate 92 MM/HR (0-15)
--- NOTE | 2024-07-01 09:26 | MHC.CM.PN ---
Patient DX Flu B lives with family. Independent with all functional mobility. Patient is seen @ the [facility]. [facility] [place]CP brochure provided. Financial [employer] have been consulted. Patient reports that [employer] determined that his insurance had lapsed. The [employer] have contacted him to report that his insurance has been reinstated. Per MD patient is ready to discharge today. DP home self care, private transport.
--- NOTE | 2024-07-01 10:04 | P.DS_ITS ---
DS: Providers Provider Date of Service: 07/01/24 Date of admission: 06/30/24 09:51 Date of discharge: 07/01/24 Primary care physician: [facility] DS: Diagnosis Discharge Diagnosis (1) Influenza B: Status: Acute (2) Pneumonia: Status: Acute DS: Summary Hospital Course Hospital Course: HPI:29-year-old male with a PMH significant for?asthma who presents to the ED with?increased SOB and MALAGON x3 weeks, worsening the past few days. Pt was recently seen at [facility] ED on 06/11 where he tested positive for influenza type A and was discharged home on a steroid taper and refill of albuterol rescue in [facility]. Pt reports since then symptoms have not improved. Pt has continued to have constant cough productive of yellowish sputum, as well as SOB and difficulty breathing. Chills but no measured fever. Chest tightness associated with breathing and cough. Cough has worsened over the past few days. Denies any significant fatigue. No nausea, vomiting, abdominal pain. In the ED pt was tachycardic up to 115 and tachypneic up to 25, desatting to 91% on RA. Labs were significant for testing positive for influenza type B, mild leukocytosis of 11.1, slightly reduced H&H of 12.7/35.1, potassium 3.1, and CRP 19.29. Lactic acid WNL at 1.6. Renal function baseline. Hepatic function largely WNL. Full respiratory panel pending. CXR showed bilateral consolidations concerning for pneumonia vs pulmonary edema. Pt was treated with DuoNebs, Solu-Medrol, Mag sulfate, 2L IVF, Tamiflu, doxycycline, and ceftriaxone. Pt will be admitted to the hospital for treatment and further evaluation of acute asthma exacerbation in the setting of influenza type B infection with post flu pneumonia with sepsis. Hospital course:patient admitted for asthma excerebation(mild intermittent),sepsis with pneumonia(cxr -shows pneumonia) ,influenza b ,mild hypokalemia : patient started on iv antibiotics,nebs,steriods ,blood cultures sent ,lactic acid normal: patient seems improved with above supportive care , crp improving , no fevers or sob ,has mild leucocytois-going home with po steriods and antibiotics,tamiflu,cough medicationconsider repeating chest imaging in 3-4 weeks to see resolution of pneumonia . plan: moniter cbc outapatient. ceftin 500 mg po bid,doxycycline 100 mg po bid prednisone 40 mgx4 days tamflu 75mg po bid-7 more doses. cough medication. consider repeating chest imaging in 3-4 weeks to see resolution of pneumonia . Time Attestation Total time managing care of this patient today: 40 mintues. Discharge Coordination Time (in mins): 40 min Quality: Safe Use of Opioids Does Pt have an Active Cancer Diagnosis on the Problem List?: No Quality: Stroke Does the patient have a stroke diagnosis?: No Physical Exam Vital Signs: Vital Signs: Last Vital Signs Temp 98.2 F 07/01/24 07:26 Pulse 86 07/01/24 07:56 Resp 16 07/01/24 07:56 BP 121/78 07/01/24 07:26 Pulse Ox 96 07/01/24 07:26 O2 Del Method Room Air 07/01/24 07:26 O2 Flow Rate 2 06/30/24 06:36 BMI result Body Mass Index 23.1 DS: Data Data Completed and Pending Labs on day of discharge: Laboratory Results - last 24 hr 07/01/24 06:09 WBC 13.1 H RBC 4.36 L Hgb 12.2 L Hct 35.9 L MCV 82.3 MCH 28.0 MCHC 34.0 RDW 12.7 Plt Count 491 H MPV 9.0 L Absolute Nucleated RBC 0.000 Nucleated RBC % (auto) 0.0 ESR 92 H Sodium 139 Potassium 4.8 D Chloride 109 H Carbon Dioxide 24 Anion Gap 11 L BUN 10 Creatinine 0.67 Estim Creat Clear Calc 150.7 Estimated GFR > 60 Random Glucose 108 Calcium 9.4 C-Reactive Protein 11.40 H Preliminary micro results at discharge 06/30/24 07:39 Blood Culture - Preliminary Blood - Venous No growth after 24 hours. 06/30/24 07:22 Blood Culture - Preliminary Blood - Venous No growth after 24 hours. Discharge Plan Discharge Anticipated Discharge Date/Time: 07/01/24 09:48 Patient Disposition: Home, Self-Care Discharge Diagnosis: pneumonia ,influenza b Referrals: [place] [Primary Care Provider] - 1 Week Discharge Medications: New doxycycline monohydrate 100 mg Capsule 100 mg PO Q12H Qty: 14 0RF oseltamivir [Tamiflu] 75 mg Capsule 75 mg PO Q12H Qty: 7 0RF cefuroxime axetil 500 mg Tablet 500 mg PO Q12H Qty: 14 0RF loratadine 10 mg Tablet 10 mg PO DAILY Qty: 14 0RF prednisone 20 mg tablet 40 mg PO DAILY Qty: 8 0RF Discharge Orders: Discharge Order (Routine); Ordered 07/01/24 Ordered By: Deana Maldonado Diet: Advance to usual diet Activity on Discharge: As tolerated Stand Alone Forms: Patient Portal Discharge page Print Language: Malawian Care Plan Goals: patient admitted for asthma excerebation(mild intermittent),sepsis with pneumonia(cxr -shows pneumonia) ,influenza b ,mild hypokalemia : patient started on iv antibiotics,nebs,steriods ,blood cultures sent ,lactic acid normal: patient seems improved with above supportive care , crp improving , no fevers or sob ,has mild leucocytois-going home with po steriods and antibiotics,tamiflu,cough medicationconsider repeating chest imaging in 3-4 weeks to see resolution of pneumonia . hypokalemia repleted and resolved. Health Concerns: moniter cbc and bmp outpatient. ceftin 500 mg po bid,doxycycline 100 mg po bid prednisone 40 mgx4 days tamflu 75mg po bid-7 more doses. cough medication. consider repeating chest imaging in 3-4 weeks to see resolution of pneumonia . Plan of Treatment: as above. Assessment: as above. Patient Instructions: Pneumonia (DC) Discharge Date/Time: 07/01/24 11:11
== END 2024-07-01 11:11 | disposition home or self-care (01) | DRG 720 ==
LOC: HO.ED 10:03 → HO.EDOVER 10:24 → HO.S3 16:08
PROVIDERS: Admitting Provider Student in an Organized Health Care Education/Training Program; Emergency Provider Emergency Medicine; Visit Provider Internal Medicine
DX: A41.89 Other specified sepsis (principal); J10.00 Influenza due to other identified influenza virus with unspecified type of pneumonia; J45.21 Mild intermittent asthma with (acute) exacerbation; E87.6 Hypokalemia; Z20.822 Contact with and (suspected) exposure to COVID-19
CPT/HCPCS: 0241U; 36415; 71046; 80048; 80053; 83605; 85025; 85027; 85652; 86140; 87040; 87633; 94640; 99285; J0696; J1650; J2919; J3475

== ENCOUNTER → 2024-06-30 06:42 | Outpatient (BNV) | payer SELFPAY | PROVIDERS: Emergency Provider Emergency Medicine; Visit Provider Specialist | DX: J45.909 Unspecified asthma, uncomplicated (principal) | CPT/HCPCS: 71046 ==

== ENCOUNTER → 2024-06-30 09:51 | Outpatient (BNV) | payer SELFPAY | PROVIDERS: Admitting Provider Student in an Organized Health Care Education/Training Program; Emergency Provider Emergency Medicine; Visit Provider Student in an Organized Health Care Education/Training Program | DX: J10.1 Influenza due to other identified influenza virus with other respiratory manifestations (principal); J18.9 Pneumonia, unspecified organism | CPT/HCPCS: 99239 ==

== ENCOUNTER 2024-10-20 21:51 | Emergency (ER) | payer MEDICAID, SELFPAY ==
[2024-10-20 21:57] VITALS: BP 141/87; PULSE 95; RESP 16; TEMP 36.7; O2SAT 96; BMI 25.4
--- OUTSIDE RECORDS SUMMARY | 2024-10-20 22:23 | XMS_ITS | Clinical Summary ---
Author Organization [facility] ity Address [address] [place] [address] Care Team Providers Care Manager Of Procurement Name Role Phone Unavailable Primary Care Provider [...] 2013 COVID-19 Vaccine (2023-2 5 season) 2023 Depression Screening 03/29/2024 Influenza Vaccine (#1) 2024 HIB Vaccines Aged Out No longer eligi [...] age to complete this topic Meningococcal B Vaccine Aged Out No l onger eligible based on patient's age to complete this topic Pneumococcal Vaccine: Pediat rics (0 to 5 Years) and At-Risk Patients (6 to 49 Years) Aged Out No longer eligible b ased on patient's age to complete this topic RSV Immunization Patients Un smith 20 months Aged Out No longer eligible b ased on patient's age to complete this topic Varicella Vaccines Aged Out No longer eligible based on patient's age to complete this topic
--- OUTSIDE RECORDS SUMMARY | 2024-10-20 22:23 | XMS_ITS | Encounter Summary ---
Author Organization [employer] Address [address] [place] [address] Care Team Providers Care Technical Specialist Cytogenetics Name Role Phone Teresa Dickens MD Primary Care Provider [phone] Reason for Visit * Reason Comments Med Refill Encounter Details Date Type Department Care Team ([facility] st Contact Info) Description 10/18/2024 Refill [facility] [address] [place] [address] Teresa Dickens MD [address] [place] [address] Social History Tobacco Use Types Packs/Day Years Used Date Smoking Tobacco: Never Passive Smoke Exposure: Never Smokeless Tobacco: Never Sex and Gender Information Value Date Recorded Sex Assigned at Male 01/26/2022 10:18 AM EDT Legal Sex Male 10:18 AM EDT Gender Identity Male 01/26/2022 10:18 AM EDT Sexual Orientation Don't know 01/26/2022 10 :18 AM EDT documented as of this encounter Plan of Treatment Not on file documented as of this encounter Visit Diagnoses Not on filedocumented in this encounter Care Teams Technical Specialist Cytogenetics Relationship Specialty Start Date End Date Teresa Dickens MD [address] [place] [address] PCP - General Family Medicine 12/23/20 documented as of this encounter
[2024-10-20 22:32] VITALS: BP 131/78; PULSE 87; RESP 16; TEMP 36.5; O2SAT 96
--- NOTE | 2024-10-20 23:07 | ED_ITS ---
HPI - Eye Problem General Chief complaint: Eye Problems Stated complaint: left eye irritation Time Seen by Provider: 10/20/24 22:59 Source: patient Mode of arrival: ambulatory Limitations: no limitations History of Present Illness ED Provider: HPI Narrative: Patient's started a noticed swelling of the both eyelids while sitting in the car felt funny in the eyelids and started rubbing noticed swelling no other lesions no rash no history of allergic reaction no foreign body sensation Related Data Previous Rx's ?Medication ?Instructions ?Recorded cefuroxime axetil 500 mg tablet 500 mg PO Q12H #14 tab s 07/01/24 doxycycline monohydrate 100 mg 100 mg PO Q12H #14 caps 07/01/24 capsule loratadine 10 mg tablet 10 mg PO DAILY #14 tabs 08/20 oseltamivir 75 mg capsule (Tamiflu) 75 mg PO Q12H #7 c aps 07/01/24 prednisone 20 mg tablet 40 mg (2 x 20 mg) PO DAILY # 8 tabs 07/01/24 diphenhydramine HCl 25 mg capsule 50 mg (2 x 25 mg) PO TID PRN 10/20/24 (Benadryl) allergic reaction #20 caps ketorolac 0.5 % eye drops (Acular) 1 drp ophthalmic (e ye) QID #5 mL 10/20/24 Allergies Allergy/AdvReac Type Severity Reaction Status Date / Time No Known Allergies Allergy Verified 10/20/24 21:59 Review of Systems 2 Review of Systems: Yes all other systems are reviewed and are negative [facility] Past Medical History Medical History Unspecified asthma Seasonal allergies Social History Social History Household Members: Family Housing: House Do you presently have visiting nurse or other home services: No Patient Tobacco Use Status: Never used Tobacco Advance Directives: No Advance Directives Information Provided: No service: No Physical Exam Vital Signs: Vital Signs: Last Vital Signs Temp 97.7 F 10/20/24 23:23 Pulse 87 10/20/24 23:23 Resp 16 10/20/24 23:23 BP 131/78 10/20/24 23:23 Pulse Ox 96 10/20/24 23:23 O2 Del Method Room Air 10/20/24 23:23 BMI result Body Mass Index 25.4 Appearance: Alert. Oriented X3. No acute distress. Eyes: Bilateral swelling of the upper eyelid more on the left side in the right conjunctival also inflamed with watery discharge ENT: Pharynx normal Oral Mucosa moist tympanic membrane intact no erythema, Neck: Normal inspection. Neck supple. CVS: Normal heart rate and rhythm. Pulses normal. Respiratory: No respiratory distress. Equal air entry bilateral, no wheezing/rales/rhonchi Abd: soft, not tender Skin: Skin warm and dry. Normal skin color. Normal skin turgor. Extremities: No lower extremity edema, no calf tenderness Neuro: Oriented X 3. Medications Administered Discontinued Medications Generic Name Dose Route Start Last Admin Trade Name Freq PRN Reason Stop Dose Admin Diphenhydramine HCl 50 mg 10/20/24 23:11 10/20/24 23:27 Diphenhydramine Hcl 25 Mg Capsule PO 10/20/24 23:12 50 mg ONCE ONE Administration Prednisone 60 mg 10/20/24 23:11 10/20/24 23:27 Prednisone 20 Mg Tablet PO 10/20/24 23:12 60 mg ONCE ONE Administration Medical Decision Making Medical Decision Making MDM Narrative: Patient clinically with allergic reaction will give Benadryl and ketorolac eyedrops Discharge Plan Discharge Clinical Impression: Allergic blepharitis Patient Disposition: Home, Self-Care Instructions: General Allergic Reaction (ED) Additional Instructions: Likely have allergic reaction to some chemicals Take Benadryl and eyedrops as advised Prescriptions: New diphenhydramine HCl [Benadryl] 25 mg capsule 50 mg PO TID PRN (Reason: allergic reaction) Qty: 20 0RF ketorolac [Acular] 0.5 % drops 1 drp ophthalmic (eye) QID Qty: 5 0RF No Action doxycycline monohydrate 100 mg Capsule 100 mg PO Q12H Qty: 14 0RF oseltamivir [Tamiflu] 75 mg Capsule 75 mg PO Q12H Qty: 7 0RF cefuroxime axetil 500 mg Tablet 500 mg PO Q12H Qty: 14 0RF loratadine 10 mg Tablet 10 mg PO DAILY Qty: 14 0RF prednisone 20 mg tablet 40 mg PO DAILY Qty: 8 0RF Interventions: ED Discharge Assessment Last Done: 10/20/24 23:23 Discharge Date/Time: 10/20/24 23:27 Print Language: Nigerian
[2024-10-20 23:23] VITALS: BP 131/78; PULSE 87; RESP 16; TEMP 36.5; O2SAT 96
== END 2024-10-20 23:27 | disposition home or self-care (01) ==
PROVIDERS: Emergency Provider Internal Medicine
DX: T78.40XA Allergy, unspecified, initial encounter (principal); H01.004 Unspecified blepharitis left upper eyelid; H01.001 Unspecified blepharitis right upper eyelid; X58.XXXA Exposure to other specified factors, initial encounter; H01.9 Unspecified inflammation of eyelid
CPT/HCPCS: 99283

== ENCOUNTER 2025-03-16 23:30 | Emergency (ER) | payer SELFPAY ==
--- NOTE | ~2025-03-16 | XR_ITS ---
CLINICAL HISTORY: cough 1 view chest x-ray Comparison: 06/30/2024 Findings: Lungs are clear without acute infiltrates. No pneumothorax. Heart size normal. No acute bony abnormalities. Impression: No acute processes This document has been electronically signed by: Robert Starks MD on 03/17/2025 00:21:10
[2025-03-16 23:32] VITALS: BP 111/82; PULSE 98; RESP 20; TEMP 37.2; O2SAT 94; BMI 26.6
--- OUTSIDE RECORDS SUMMARY | 2025-03-16 23:55 | XMS_ITS | Encounter Summary ---
Author Organization [employer] Address [address] [facility] [address] [place] [address] Care Team Providers Care Payroll Benefits Administrator Name Role Phone Teresa Dickens MD Primary Care Provider [phone] Reason for Visit * Reason Comments Med Refill Encounter Details Date Type Department Care Team ([facility] st Contact Info) Description 10/22/2024 Refill [facility] [address] [place] [address] Teresa Dickens MD [address] [place] [address] Social History Tobacco Use Types Packs/Day Years [...] on filedocumented in this encounter Care Teams Payroll Benefits Administrator Relationship Specialty Start Date End Date Teresa Dickens MD [address] [place] [address] PCP - General Family Medicine 12/23/20 documented as of this encounter
--- OUTSIDE RECORDS SUMMARY | 2025-03-16 23:55 | XMS_ITS | Clinical Summary ---
Author Organization [employer] Address [address] [facility] [address] [place] [address] Care Team Providers Care Social Insurance Adviser Name Role Phone Teresa Dickens MD Primary Care Provider [phone] Allergies No known active allergies Medications cetirizine (ZyrTEC) 10 MG tablet TAKE 1 TABLET BY MOUTH EVERY DAY 90 tablet 3 05/03/2023 Active montelukast (Singulair) 10 MG tablet TAKE 1 TABLET BY MOUTH EVERY DAY IN THE EVENING 90 tablet 3 08/02/2023 Active Active Problems Problem Noted Date Diagnosed Date DJD (degenerative joint disease), lumbosacral Overview (07/15/2022): 05/2022 xray from previous PCP Social History Tobacco Use Types Packs/Day Years Used Date Smoking Tobacco: Never Passive Smoke Exposure: Never Smokeless Tobacco: Never Tobacco Cessation:Counseling Given: Not Answered Sex and Gender Information Value Date Recorded Sex Assigned at Male 01/26/2022 10:18 AM EDT Legal Sex Male 10:18 AM EDT Gender Identity Male 01/26/2022 10:18 AM EDT Sexual Orientation Don't know 01/26/2022 10 :18 AM EDT Last Filed Vital Signs Vital Sign Reading Time Taken Comments Blood Pressure 130/83 07/08/2022 10:46 AM EDT Pulse 63 07/08/2022 10:46 AM EDT Temperature 36.6 C (97.8 F) 07/08/2022 10:46 AM EDT Respiratory Rate 16 07/08/2022 10:4 6 AM EDT Oxygen Saturation 98% 07/08/2022 10: 46 AM EDT Inhaled Oxygen Concentration - - Weight 67.9 kg (149 lb 12.8 oz) 023 10:46 AM EDT Height 170.2 cm (5' 7 ) 07/08/2022 10:4 6 AM EDT Body Mass Index 23.46 07/08/2022 10:46 AM EDT Plan of Treatment Health Maintenance Due Date Last Done Comments Depression Screening 1994 SDOH Screening 1994 Disability Screening 1994 Hepatitis B Vaccines (3 of 3 - 3-dose series) 1994 1994, 1994, 1994 Alcohol/Substance Use Screening 2006 Family Planning (PISQ) 2009 HPV Vaccines (3 - Male 3-dose series) 05/10/2013 02/15/2013, 09/17/2011 Tobacco Screening 07/09/2023 07/08/2022 COVID-19 Vaccine ( season) 2024 Influenza Vaccine (#1) 2024 02/15/2013 DTaP/Tdap/Td Vaccines (6 - Td or Tdap) 12/23/2030 12/23/2020, 09/25/2015, 04/24/1998, Additional history exists Zoster Vaccines (1 of 2) 2044 RSV Patients and Patients Aged 60 years or older (1 - 1-dose 75+ series) 2069 HIB Vaccines Completed 05/28/1995, 03/1994, 1994, Additional history exists IPV Vaccines Completed 04/24/1998, 03/1994, 1994, Additional history exists HIV Screening Completed 12/23/2020 Hepatitis C Screening Completed 12/23/2020 Hepatitis A Vaccines Aged Out No long er eligible based on patient's age to complete this topic Meningococcal B Vaccine Aged Out No l onger eligible based on patient's age to complete this topic Meningococcal Vaccine Aged Out No zonia lis eligible based on patient's age to complete this topic Pneumococcal Vaccine: Pediatrics (0 to 5 Years) and At-Risk Patients (6 to 49) Years Aged Out No longer eligible based on patient's age to complete this topic RSV under 20 months Aged Out No longe r eligible based on patient's age to complete this topic Rotavirus Vaccines Aged Out No longer eligible based on patient's age to complete this topic Procedures Procedure Name Priority Date/Time Associated Diagnosis Comments ZZZ HISTORICAL HEPATITIS C AB W/REFL TO HCV RNA, QN, PCR Routine 12/23/2020 1:45 PM EDT HIV 1/2 ANTIGEN/ANTIBODY, FOURTH GENERATION W/RFL Routine 12/23/2020 1:45 PM EDT from Last 3 Months or Most Recently Relevant to Health Maintenance Results * HEPATITIS C AB W/REFL TO HCV RNA, QN, PCR (12/23/2020 1:45 PM EDT) HEPATITIS C ANTIBODY NON-REACT ROYCE NON-REACT ROYCE [facility] INDEX 0.01 <1.00 [facility] Comment: HCV antibody was non-reactive. There is no laboratory evidence of HCV infection. In most cases, no further action is required. However, if recent HCV exposure is suspected, a test for HCV RNA (test code 69812) is suggested. For additional information please refer to http://education.[employer]/faq/VXK48y5 (This link is being provided for informational/ educational purposes only.) 12/23/2020 1:45 PM EDT us Teresa Dickens MD HISTORICAL/NON ORDERABLE LABS Fi nal Result [facility] [address] * HIV 1/2 ANTIGEN/ANTIBODY,FOURTH GENERATION W/RFL (12/23/2020 1:45 PM EDT) HIV-1/2 ANTIGEN AND ANTIBODIES, 4TH GENERATION W/ REFLEX NON-REACT ROYCE NON-REACT ROYCE [facility] Comment: HIV-1 antigen and HIV-1/HIV-2 antibodies were not detected. There is no laboratory evidence of HIV infection. PLEASE NOTE: This information has been disclosed to you from records whose confidentiality may be protected by state law. If your state requires such protection, then the state law prohibits you from making any further disclosure of the information without the specific written consent of the person to whom it pertains, or as otherwise permitted by law. A general authorization for the release of medical or other information is NOT sufficient for this purpose. For additional information please refer to http://education.[employer]/faq/CPT181 (This link is being provided for informational/ educational purposes only.) The performance of this assay has not been clinically validated in patients less than 2 years old. 12/23/2020 1:45 PM EDT us Teresa Dickens MD LAB BLOOD ORDERABLES Final Resul t [facility] [address] from Last 3 Months or Most Recently Relevant to Health Maintenance Insurance [employer] Care Teams Social Insurance Adviser Relationship Specialty Start Date End Date Teresa Dickens MD [address] [place] [address] PCP - General Family Medicine 12/23/20
--- OUTSIDE RECORDS SUMMARY | 2025-03-16 23:55 | XMS_ITS | Encounter Summary ---
Author Organization [employer] Address [address] [facility] [address] [place] [address] Care Team Providers Care Pediatric Np Name Role Phone Teresa Dickens MD Primary Care Provider [phone] Reason for Visit * Reason Comments Med Refill Encounter Details Date Type Department Care Team ([facility] st Contact Info) Description 10/18/[address] [facility]INE [address] [place] [address] Teresa Dickens MD [address] [place] [address] Social History Tobacco Use Types Packs/Day Years [...] on filedocumented in this encounter Care Teams Pediatric Np Relationship Specialty Start Date End Date Teresa Dickens MD [address] [place] [address] PCP - General Family Medicine 12/23/20 documented as of this encounter
--- OUTSIDE RECORDS SUMMARY | 2025-03-16 23:55 | XMS_ITS | Clinical Summary ---
Author Organization [facility] [employer] [facility] ity Address [address] [place] [address] Care Team Providers Care Bioinformatics Specialist Name Role Phone Unavailable Primary Care Provider [...] of 3 - 19+ 3-dose series) 2013 HPV Vaccines (1 - 3-dose SCD M series) 2021 Depression Screening 03/29/2024 COVID-19 Vaccine (1 - 2024-2 6 season) 2024 Influenza Vaccine (#1) 2024 RSV Immunization Adult Patie nts (1 - 1-dose 75+ series) 2069 HIB Vaccines Aged Out No longer eligi [...]
[2025-03-17] LABS: Strep A Nucleic Acid Negative (Negative)
[2025-03-17 00:08] LABS: IDNOW Serial# 58CA691E
[2025-03-17 00:11] LABS: COVID-19 Test Negative (Negative); IDNOW Serial# 08D9AD1C; Influenza B2 Negative (Negative)
--- NOTE | 2025-03-17 00:27 | ED.URI ---
HPI - URI/Sore Throat General Chief Complaint: Upper Respiratory Symptoms Stated Complaint: asthma/can't taste anything/tight chest Time Seen by Provider: 03/17/25 00:11 Source: patient Mode of arrival: ambulatory Limitations: no limitations History of Present Illness ED Provider: Dr. Bernice Jorgensen HPI Narrative: Patient comes to the emergency room complaining of generalized malaise, chest tightness discomfort with no pain, fatigue, diffuse body ache Related Data Previous Rx's ?Medication ?Instructions ?Recorded cefuroxime axetil 500 mg tablet 500 mg PO Q12H #14 tabs 07/01/24 doxycycline monohydrate 100 mg 100 mg PO Q12H #14 caps 07/01/24 capsule loratadine 10 mg tablet 10 mg PO DAILY #14 tabs 07/01/24 oseltamivir 75 mg capsule (Tamiflu) 75 mg PO Q12H #7 caps 07/01/24 prednisone 20 mg tablet 40 mg (2 x 20 mg) PO DAILY #8 tabs 07/01/24 diphenhydramine HCl 25 mg capsule 50 mg (2 x 25 mg) PO TID PRN 10/20/24 (Benadryl) allergic reaction #20 caps ketorolac 0.5 % eye drops (Acular) 1 drp ophthalmic (eye) QID #5 mL 10/20/24 acetaminophen 500 mg tablet 500 mg PO Q6H PRN fever or pain 03/17/25 #20 tabs ibuprofen 600 mg tablet 600 mg PO Q8H PRN fever or pain 03/17/25 #20 tabs oseltamivir 75 mg capsule (Tamiflu) 75 mg PO Q12H 5 days #10 caps 03/17/25 Allergies Allergy/AdvReac Type Severity Reaction Status Date / Time No Known Allergies Allergy Verified 03/16/25 23:35 Review of Systems Review of Systems: Constitutional : No Weight loss, complaining of fever chills fatigue generalized malaise diffuse myalgias ENT/Mouth : No Hearing loss, No Ear Pain, No Nasal Congestion, No Sinus Pain, No Hoarseness, No sore throat, No Rhinorrhea, No Swallowing Difficulty Eyes: No Eye Pain, No Swelling, No Redness, No Foreign Body, No Discharge, No Vision Changes Cardiovascular : Complaining of tightness without Chest Pain, No SOB, No Dyspnea on Exertion, No Orthopnea, No Edema, No Palpitations Respiratory : No Cough, No Sputum, No Wheezing, No Smoke Exposure, No Dyspnea Gastrointestinal : No Nausea, No Vomiting, No Diarrhea, No Constipation, No abdominal Pain, No Hematochezia, No Melena Genitourinary : no irregular bleeding, No Dysuria, No Urinary Frequency, No Hematuria, No Urinary Incontinence, No Urgency, No Flank Pain, No Urinary Flow Changes, No Hesitancy Musculoskeletal : No joint pain, No Myalgias, No Joint Swelling Skin : No Skin Lesions, No rash Neuro : No Weakness, No Numbness, No Paresthesias, No Loss of Consciousness, No Dizziness, No Headache Psych : No Anxiety/Panic, No Depression, No SI/HI/AH/VH, No Social Issues, Heme/Lymph: No Bruising, No Bleeding,No Lymphadenopathy Endocrine : No Polyuria, No Polydipsia, No Temperature Intolerance [facility] Past Medical History Medical History Unspecified asthma Seasonal allergies Social History Social History Household Members: Family Housing: House Do you presently have visiting nurse or other home services: No Patient Tobacco Use Status: Never used Tobacco Advance Directives: No Advance Directives Information Provided: No service: No Physical Exam Exam: Exam: Appearance: Alert. Oriented X3. No acute distress. Eyes: Pupils equal, round and reactive to light. ENT: Pharynx normal. Neck: Normal inspection. Neck supple. No lymph nodes noted. No crepitus CVS: Normal heart rate and rhythm. Pulses normal. Normal S1 and S2 Respiratory: No respiratory distress. Breath sounds normal. No Wheezing. No rales Abdomen: Soft and nontender. No rigidity. No distention. Skin: Skin warm and dry. Normal skin color. Normal skin turgor. Extremities: No lower extremity edema. No Lacerations. No Rash Neuro: Oriented X 3. No motor deficit. No sensory deficit. Moving all extremities. No slurred speech. CN 2 through 12 grossly intact Psych: calm, cooperative, normal affect Vital Signs: Vital Signs: Last Vital Signs Temp 99.0 F 03/16/25 23:32 Pulse 98 03/16/25 23:32 Resp 20 03/16/25 23:32 BP 111/82 03/16/25 23:32 Pulse Ox 94 03/16/25 23:32 O2 Del Method Room Air 03/16/25 23:32 BMI result Body Mass Index 26.6 Medical Decision Making Medical Decision Making [facility] Narrative: On physical exam, patient was not wheezing. Clear lung sounds. X-ray does not show any acute abnormality Patient tested positive for influenza Patient was given Tylenol and Motrin, per patient's request, symptoms started today, requesting even with Tamiflu Lab Data [facility] Lab Attestation statement: I reviewed the patient's lab results. Labs: Lab Results 03/16/25 Range/Units 23:44 COVID-19 ([facility]ENE) Negative (Negative) COVID-19 Clin Com See Note Influenza Type A ([facility]) Positive A (Negative) Influenza Type B ([facility]H) Negative (Negative) Influenza A & B Note See Note S. pyogenes GrpA SETH Negative (Negative) Independent Interpretation I performed an independent interpretation of an: Plain X-Ray Radiology Impression Discussion of test interpretation with radiology: I have reviewed the radiologist's reading. Radiologist Impression: Lungs are clear without acute infiltrates. No pneumothorax. Heart size normal. No acute bony abnormalities. Impression: No acute processes Discharge Plan Discharge Clinical Impression: Influenza A Patient Disposition: Home, Self-Care Instructions: Influenza (ED) Additional Instructions: Please follow-up with your primary care physician tomorrow. If you have any worsening or new symptoms, please return to the emergency room or call 911 Prescriptions: New acetaminophen 500 mg tablet 500 mg PO Q6H PRN (Reason: fever or pain) Qty: 20 0RF ibuprofen 600 mg tablet 600 mg PO Q8H PRN (Reason: fever or pain) Qty: 20 0RF oseltamivir [Tamiflu] 75 mg capsule 75 mg PO Q12H 5 Days Qty: 10 0RF No Action doxycycline monohydrate 100 mg Capsule 100 mg PO Q12H Qty: 14 0RF oseltamivir [Tamiflu] 75 mg Capsule 75 mg PO Q12H Qty: 7 0RF cefuroxime axetil 500 mg Tablet 500 mg PO Q12H Qty: 14 0RF loratadine 10 mg Tablet 10 mg PO DAILY Qty: 14 0RF prednisone 20 mg tablet 40 mg PO DAILY Qty: 8 0RF diphenhydramine HCl [Benadryl] 25 mg capsule 50 mg PO TID PRN (Reason: allergic reaction) Qty: 20 0RF ketorolac [Acular] 0.5 % drops 1 drp ophthalmic (eye) QID Qty: 5 0RF Print Language: Indonesian
[2025-03-17 00:40] VITALS: BP 126/80; PULSE 99; RESP 16; TEMP 37.3; O2SAT 96
[2025-03-17 00:57] VITALS: BP 126/80; PULSE 99; RESP 16; TEMP 37.3; O2SAT 96
== END 2025-03-17 00:57 | disposition home or self-care (01) ==
PROVIDERS: Emergency Provider Emergency Medicine
DX: J10.1 Influenza due to other identified influenza virus with other respiratory manifestations (principal); R07.9 Chest pain, unspecified; R53.83 Other fatigue; J45.909 Unspecified asthma, uncomplicated
CPT/HCPCS: 71045; 87502; 87635; 87651; 99283; 99284

== ENCOUNTER → 2025-03-16 23:59 | Outpatient (BNV) | payer MEDICAID, SELFPAY | PROVIDERS: Emergency Provider Emergency Medicine; Visit Provider Radiology Diagnostic Radiology | DX: R05.9 Cough, unspecified (principal) | CPT/HCPCS: 71045 ==